=== PATIENT | male | born 1985 | race Caucasian/White ===

== ENCOUNTER 2022-10-28 19:56 | Emergency (ER) | payer OTHER, MEDICAID, SELFPAY ==
[2022-10-28 20:00] VITALS: BP 156/98; PULSE 73; RESP 18; TEMP 36.7; O2SAT 98; BMI 39.5
--- NOTE | 2022-10-28 23:04 | ED_ITS ---
HPI - Recheck/Abnormal Lab/Rx General Chief Complaint: Recheck/Abnormal Lab/Rx Stated Complaint: med refill Time Seen by Provider: 10/28/22 23:04 Source: patient Mode of arrival: Ambulatory History of Present Illness HPI narrative: 37-year-old gentleman with history of opioid use disorder who has been stable on Suboxone for the last 2 years currently seen at [facility] monthly had an appointment today however the prescription did not get filled despite multiple phone calls. He is having significant withdrawal symptoms and is hoping for a single treatment in the emergency department so he is able to get to work and safely work tomorrow. He has been on the same dose for an extended period of time and is wondering if he should begin tapering, he is frustrated with the prescription leg difficulties and does not have any extra doses at home to cover the day or 2 lag time each month. He is complaining of nausea increasing body aches and mild withdrawal symptoms at this time. Related Data Home Medications Medication Instructions Recorded Confirmed buprenorphine 8 mg-naloxone 2 mg 10 mg sublingual BID 10/28/22 10/28/22 sublingual film (Suboxone) Allergies Allergy/AdvReac Type Severity Reaction Status Date / Time No Known Drug Allergies Allergy Verified 10/28/22 20:00 Review of Systems Review of Systems Narrative: Pertinent positive and negative findings as per HPI Patient History Medical History (Updated 10/28/22 @ 23:20 by Alexandra Elizabeth MD) Opioid use disorder in remission Social History Smoking Status: Current every day smoker Smoking Status: Current every day smoker tobacco type: vaping Substance Use Type: does not use Exam Initial Vital Signs Initial Vital Signs: Vital Signs Temperature 98.1 F 10/28/22 20:00 Pulse Rate 73 10/28/22 20:00 Respiratory Rate 18 10/28/22 20:00 Blood Pressure 156/98 H 10/28/22 20:00 Pulse Oximetry 98 10/28/22 20:00 Oxygen Delivery Method Room Air 10/28/22 20:00 General: Alert appropriate in no acute distress Respiratory: Able to speak in full sentences, no obvious respiratory distress Skin: No obvious rashes, warm and dry Neurologic: Grossly intact no obvious asymmetries or abnormalities Psych: appropriate insight and affect, cooperative Course Vital Signs Vital signs: Vital Signs - 8 hr 10/28/22 20:00 Temperature 98.1 F Pulse Rate 73 Respiratory Rate 18 Blood Pressure 156/98 H Pulse Oximetry 98 Oxygen Delivery Method Room Air MDM - Recheck/Abnormal Lab/Rx MDM Narrative Medical decision making narrative: CC: Opioid withdrawal is an acute issue uncertain prognosis Data collected from: patient, Differential considered: Acute opioid withdrawal, Exam documented above, pertinent findings include: Mild diaphoresis and nausea Discussion: 37-year-old gentleman stable with his opioid use treatment with monthly visits at [facility] now will be 48 hours before he is able to get his next dose assuming that the prescription does get filled tomorrow. He is given his usual dose for today in the emergency department and an extra 8 mg strips to have at home. We talked about beginning a very slow taper as he is 2 years into his recovery. Very slow being decreasing his dose by half a strip per week. I also suggested that he talk to his Suboxone provider and ask if they would be willing to give him an additional 2 days given his steady recovery so that he does not have to becomes so anxious and deal with withdrawal symptoms due to lag time in prescription refill difficulties. He is safe for discharge home Discharge Plan Departure Patient Disposition: Home Clinical Impression: Encounter for medication refill Activity Restrictions/Additional Instructions: Thank you for coming in today in for waiting through our long wait times. I have given you 2 strips of Suboxone to take in the emergency department this evening. I have given you an extra want to take home. We briefly talked about the possibility of decreasing your overall weekly dose by half a strip a week. If this feels like it is safe and is something that is reasonable and does not interfere with your long-term recovery, please do consider this. With your next [facility] appointment, please discuss with your prescriber the possibility of making the prescription for 31 days rather than 30 so that you do not have to deal with acute withdrawal symptoms when there are medication refill issues. I wish you the very best in your continued recovery Prescriptions: No Action buprenorphine-naloxone [Suboxone] 8-2 mg film 10 mg sublingual BID Stand Alone Forms: Patient Portal/API
[2022-10-28] MEDS: BUPRENORPHINE/NALOXONE 8MG/2MG 1 TAB 3 TAB SL (23:18)
[2022-10-28 23:19] VITALS: BP 150/93; PULSE 78; RESP 16; O2SAT 97
== END 2022-10-28 23:26 | disposition home or self-care (01) ==
PROVIDERS: Emergency Provider Emergency Medicine
DX: Z76.0 Encounter for issue of repeat prescription (principal); R11.0 Nausea; R52 Pain, unspecified
CPT/HCPCS: 99283

== ENCOUNTER 2022-12-22 14:58 | Emergency (ER) | payer OTHER, MEDICAID, SELFPAY ==
[2022-12-22 15:04] VITALS: BP 180/98; PULSE 100; RESP 16; TEMP 36.6; O2SAT 98; BMI 40.6
--- NOTE | 2022-12-22 16:06 | ED.RECABL ---
HPI - Recheck/Abnormal Lab/Rx <Kory Luna PA-C - Last Filed: 12/22/22 16:12> General Chief Complaint: Recheck/Abnormal Lab/Rx Stated Complaint: Needs emergency med refill Time Seen by Provider: 12/22/22 15:00 History of Present Illness HPI narrative: This is a 37-year-old male presents emergency department for an emergency dosage of his Suboxone. States he is having withdrawal symptoms such as shakiness, nausea, sweating. Denies any hallucinations or seizures. He has a follow up appointment with his [facility] tomorrow. States he accidentally threw his dosing away which is why he is needed to come here. Related Data Home Medications Medication Instructions Recorded Confirmed buprenorphine 8 mg-naloxone 2 mg 10 mg sublingual BID 10/28/22 11/05/22 sublingual film (Suboxone) Allergies Allergy/AdvReac Type Severity Reaction Status Date / Time No Known Drug Allergies Allergy Verified 11/05/22 16:33 Review of Systems <Kory Luna PA-C - Last Filed: 12/22/22 16:12> Review of Systems Narrative: GENERAL: Reports shakiness, diaphoresis Denies chills, fatigue, malaise, fever, . HEENT: Denies sinus pain, ear pain, sore throat, difficulty swallowing, dizziness. RESPIRATORY: Denies dyspnea, cough, wheezing, hemoptysis, sputum. CARDIOVASCULAR: Denies chest pain, palpitations, orthopnea, edema, GASTROINTESTINAL: Reports nausea, denies vomiting, abdominal pain, diarrhea, constipation, melena. : Denies dysuria, frequency, incontinence, hematuria, urinary retention. MUSCULOSKELETAL: denies weakness, joint pain, or bony pain SKIN: Denies rash, skin lesions, or other NEUROLOGIC: Denies weakness, headache, numbness, change in speech, confusion, seizures, incoordination. PSYCHIATRIC: No concerning psychosocial issues. 12 point review of systems is negative except for those stated above Patient History <Kory Luna PA-C - Last Filed: 12/22/22 16:12> Medical History Opioid use disorder in remission Social History Smoking Status: Current every day smoker Smoking Status: Current every day smoker tobacco type: vaping Substance Use Type: does not use Exam <BRIANA Landry Last Filed: 12/22/22 16:12> Narrative Exam Narrative: GENERAL: Well-developed patient, in mild distress. HEAD: Atraumatic. Normocephalic. EYES: Pupils equal round and reactive. Extraocular motions intact. No scleral icterus. No injection or drainage. ENT: Nose without bleeding, purulent drainage. Throat without erythema, tonsillar hypertrophy or exudate. Airway patent. NECK: Trachea midline. Non tender CARDIOVASCULAR: Regular rate and rhythm without murmurs, gallops, or rubs. RESPIRATORY: Clear to auscultation. Breath sounds equal bilaterally. No wheezes, rales, or rhonchi. GASTROINTESTINAL: Abdomen soft, non-tender, nondistended. EXTREMITIES: No edema or joint tenderness. BACK: Nontender without deformity or crepitance. No flank tenderness. NEURO: AOx3. SKIN: No rash or erythema of visible areas Initial Vital Signs Initial Vital Signs: Vital Signs Temperature 97.8 F 12/22/22 15:04 Pulse Rate 100 H 12/22/22 15:04 Respiratory Rate 16 12/22/22 15:04 Blood Pressure 180/98 H 12/22/22 15:04 Pulse Oximetry 98 12/22/22 15:04 Oxygen Delivery Method Room Air 12/22/22 15:04 <Fabi Celaya DO - Last Filed: 12/26/22 09:01> Initial Vital Signs Initial Vital Signs: Vital Signs Temperature 97.8 F 12/22/22 15:04 Pulse Rate 100 H 12/22/22 15:04 Respiratory Rate 16 12/22/22 15:04 Blood Pressure 180/98 H 12/22/22 15:04 Pulse Oximetry 98 12/22/22 15:04 Oxygen Delivery Method Room Air 12/22/22 15:04 Course <Kory Luna PA-C - Last Filed: 12/22/22 16:12> Orders Ordered: Discontinued Medications Buprenorphine/Naloxone (Buprenorphine/Naloxone 8mg/2mg 1 Tab) 1 tab SL DAILY [place] Buprenorphine/Naloxone (Buprenorphine/Naloxone 8mg/2mg 1 Tab) 2 tab SL DAILY [place] Buprenorphine/Naloxone (Buprenorphine/Naloxone 8mg/2mg 1 Tab) 2 tab SL NOW ONE Stop: 12/22/22 16:18 Last Admin: 12/22/22 16:21 Dose: 2 tab Documented By: RLS Vital Signs Vital signs: Vital Signs - 8 hr 12/22/22 15:04 Temperature 97.8 F Pulse Rate 100 H Respiratory Rate 16 Blood Pressure 180/98 H Pulse Oximetry 98 Oxygen Delivery Method Room Air <Fabi Celaya DO - Last Filed: 12/26/22 09:01> Orders Ordered: Discontinued Medications Buprenorphine/Naloxone (Buprenorphine/Naloxone 8mg/2mg 1 Tab) 1 tab SL DAILY [place] Buprenorphine/Naloxone (Buprenorphine/Naloxone 8mg/2mg 1 Tab) 2 tab SL DAILY [place] Buprenorphine/Naloxone (Buprenorphine/Naloxone 8mg/2mg 1 Tab) 2 tab SL NOW ONE Stop: 12/22/22 16:18 Last Admin: 12/22/22 16:21 Dose: 2 tab Documented By: RLS Vital Signs Vital signs: Vital Signs - 8 hr 12/22/22 15:04 Temperature 97.8 F Pulse Rate 100 H Respiratory Rate 16 Blood Pressure 180/98 H Pulse Oximetry 98 Oxygen Delivery Method Room Air MDM - Recheck/Abnormal Lab/Rx <Kory Luna PA-C - Last Filed: 12/22/22 16:12> MDM Narrative Medical decision making narrative: MDM * differential diagnosis includes but not limited to medication refill, withdrawals * Prior records reviewed: Patient was seen here 2 months ago for Suboxone refill. History of opiate use disorder. Currently seen at [facility] monthly. * My lab interpretation: None obtained * My imgaing interpretation: None obtained * Clinical Decision Rules/Scores evaluated: None * Independent discussions with: None ED Course: This is a 37-year-old male presents to the emergency department due to an emergency Suboxone administration. States he is accidentally threw a Suboxone. He states he takes 16/for Suboxone nightly. This was given to him here in the emergency department. He has not established follow up appointment with his [facility] provider tomorrow. No significant withdrawal symptoms such as seizures, hallucinations. Shared Decision Making: Discussed plan with patient who is comfortable with the plan. Social Considerations: None Disposition: Discharged to home. Discharge Plan Departure Patient Disposition: Home Clinical Impression: Encounter for medication refill Activity Restrictions/Additional Instructions: Thank you for coming to the [facility] Emergency Department today. Please follow up with the [facility] tomorrow for refills. Please do best to not need to return to the emergency department for refills in to ensure that you have proper follow up with the [facility]. I hope you feel better soon. Please follow up with your primary care provider within a week if your symptoms continue. If you do not have a primary care provider please contact the [facility] Resource line at [phone]. They will ask some questions about your medical history and help you get set up with a provider in the community. Prescriptions: No Action buprenorphine-naloxone [Suboxone] 8-2 mg film 10 mg sublingual BID Referrals: Miscellaneous,Doctor, [Primary Care Provider] - Stand Alone Forms: Patient Portal/API ED Sign-out <Fabi Celaya DO - Last Filed: 12/26/22 09:01> Cosign ED Attending Clifford Attestation: I was immediately available in the department for consultation. Documentation has been reviewed.
[2022-12-22] MEDS: BUPRENORPHINE/NALOXONE 8MG/2MG 1 TAB 2 TAB SL (16:21)
== END 2022-12-22 16:24 | disposition home or self-care (01) ==
PROVIDERS: Emergency Provider Physician Assistant Medical
DX: Z76.0 Encounter for issue of repeat prescription (principal)
CPT/HCPCS: 99282; 99283

== ENCOUNTER 2023-04-13 13:01 | Emergency (ER) | payer OTHER, SELFPAY ==
[2023-04-13 13:04] VITALS: BP 154/96; PULSE 90; RESP 18; TEMP 36.6; O2SAT 99; BMI 46.1
--- NOTE | 2023-04-13 13:31 | ED_ITS ---
HPI - Recheck/Abnormal Lab/Rx <Kory Luna PA-C - Last Filed: 04/13/23 13:44> General Chief Complaint: Recheck/Abnormal Lab/Rx Stated Complaint: needs mdication refill drs closed Time Seen by Provider: 04/13/23 13:17 Source: patient Mode of arrival: Ambulatory History of Present Illness HPI narrative: This is a 37-year-old male presents emergency department due to running out of his Suboxone. He is seen at [facility] and has an appointment tomorrow. States he was not taking his Suboxone for 2 days. Takes he takes 16/4 mg daily of Suboxone. Reports some mild nausea. No other symptoms. Related Data Home Medications Medication Instructions Recorded Confirmed buprenorphine 8 mg-naloxone 2 mg 10 mg sublingual BID 10/28/22 11/05/22 sublingual film (Suboxone) Allergies Allergy/AdvReac Type Severity Reaction Status Date / Time No Known Drug Allergies Allergy Verified 04/13/23 13:04 Review of Systems <Kory Luna PA-C - Last Filed: 04/13/23 13:44> Review of Systems Narrative: GENERAL: Denies chills, fatigue, malaise, fever, sweats. HEENT: Denies sinus pain, ear pain, sore throat, difficulty swallowing, dizziness. RESPIRATORY: Denies dyspnea, cough, wheezing, hemoptysis, sputum. CARDIOVASCULAR: Denies chest pain, palpitations, orthopnea, edema, GASTROINTESTINAL: Reports nausea, denies vomiting, abdominal pain, diarrhea, constipation, melena. : Denies dysuria, frequency, incontinence, hematuria, urinary retention. MUSCULOSKELETAL: denies weakness, joint pain, or bony pain SKIN: Denies rash, skin lesions, or other NEUROLOGIC: Denies weakness, headache, numbness, change in speech, confusion, seizures, incoordination. PSYCHIATRIC: No concerning psychosocial issues. 12 point review of systems is negative except for those stated above Patient History <Kory Luna PA-C - Last Filed: 04/13/23 13:44> Medical History Opioid use disorder in remission Social History Smoking Status: Current every day smoker Smoking Status: Current every day smoker tobacco type: vaping Substance Use Type: does not use and former substance user Exam <Kory Luna PA-C - Last Filed: 04/13/23 13:44> Narrative Exam Narrative: GENERAL: Well-developed patient, in mild distress. HEAD: Atraumatic. Normocephalic. EYES: Pupils equal round and reactive. Extraocular motions intact. No scleral icterus. No injection or drainage. ENT: Nose without bleeding, purulent drainage. Throat without erythema, tonsillar hypertrophy or exudate. Airway patent. NECK: Trachea midline. Non tender EXTREMITIES: No edema or joint tenderness. NEURO: AOx3. SKIN: No rash or erythema of visible areas Initial Vital Signs Initial Vital Signs: Vital Signs Temperature 97.8 F 04/13/23 13:04 Pulse Rate 90 04/13/23 13:04 Respiratory Rate 18 04/13/23 13:04 Blood Pressure 154/96 H 04/13/23 13:04 Pulse Oximetry 99 04/13/23 13:04 Oxygen Delivery Method Room Air 04/13/23 13:04 <Haley Rain DO - Last Filed: 04/14/23 07:32> Initial Vital Signs Initial Vital Signs: Vital Signs Temperature 97.8 F 04/13/23 13:04 Pulse Rate 90 04/13/23 13:04 Respiratory Rate 18 04/13/23 13:04 Blood Pressure 154/96 H 04/13/23 13:04 Pulse Oximetry 99 04/13/23 13:04 Oxygen Delivery Method Room Air 04/13/23 13:04 Course <Kory Luna PA-C - Last Filed: 04/13/23 13:44> Orders Ordered: Discontinued Medications Buprenorphine/Naloxone (Buprenorphine/Naloxone 8mg/2mg 1 Tab) 2 tab SL NOW ONE Stop: 04/13/23 13:41 Last Admin: 04/13/23 13:50 Dose: 2 tab Documented By: RLS Vital Signs Vital signs: Vital Signs - 8 hr 04/13/23 13:04 Temperature 97.8 F Pulse Rate 90 Respiratory Rate 18 Blood Pressure 154/96 H Pulse Oximetry 99 Oxygen Delivery Method Room Air <Haley Rain DO - Last Filed: 04/14/23 07:32> Orders Ordered: Discontinued Medications Buprenorphine/Naloxone (Buprenorphine/Naloxone 8mg/2mg 1 Tab) 2 tab SL NOW ONE Stop: 04/13/23 13:41 Last Admin: 04/13/23 13:50 Dose: 2 tab Documented By: RLS Vital Signs Vital signs: Vital Signs - 8 hr 04/13/23 13:04 Temperature 97.8 F Pulse Rate 90 Respiratory Rate 18 Blood Pressure 154/96 H Pulse Oximetry 99 Oxygen Delivery Method Room Air MDM - Recheck/Abnormal Lab/Rx <Kory Luna PA-C - Last Filed: 04/13/23 13:44> [facility] Narrative Medical decision making narrative: ED course: This is a 37-year-old male presents to the emergency department due to running out of his Suboxone. States that he takes 16/4 mg of Suboxone daily which appears to be correct based on his medical record. He has not an appointment with [facility] tomorrow. Has mild nausea but no other symptoms. We will be given a 1 time dose here in the emergency department and recommended follow up with the [facility] department. CC: Medication refill Complicating co-morbidities: Opiate use disorder Data collected from: Previous notes Medical records reviewed: Patient was seen here 4 months ago for a medication refill of his Suboxone. Is seen at [facility]. Patient was given 16/4 of Suboxone 1 time in the emergency department Differential considered, but not limited to: Opiate withdrawal Exam documented above, pertinent findings include: No significant abnormalities Lab Test results independently reviewed as above. Pertinent findings: None obtained Imaging studies independently reviewed: None obtained Scores Used: None MIPS Elements: None Consultations: None Treatments: Suboxone here in the emergency department Re-evaluations: None Discussion: Discussed plan with the patient was comfortable with the plan Diagnosis: Medication refill Disposition: see below, along with detailed discharge instructions that have been reviewed with patient as well as indications for ED re-evaluation and additional outpatient follow up Discharge Plan Departure Patient Disposition: Home Clinical Impression: Encounter for medication refill Activity Restrictions/Additional Instructions: Thank you for coming to the [facility] Emergency Department today. We are able to give you a 1 time dose here in the emergency department. Please do your best to refrain from using the emergency department for routine refills. Please do your best to work with the [facility] for the appropriate dosing see you not run out of medication. Please return to the emergency department if you develop any chest pain, shortness breath, or any other concerning signs or symptoms. I hope you feel better soon. Please follow up with your primary care provider within a week if your symptoms continue. If you do not have a primary care provider please contact the [facility] Resource line at [phone]. They will ask some questions about your medical history and help you get set up with a provider in the community. Prescriptions: No Action buprenorphine-naloxone [Suboxone] 8-2 mg film 10 mg sublingual BID Referrals: Miscellaneous,Doctor, [Primary Care Provider] - Stand Alone Forms: Patient Portal/API ED Sign-out <Haley Rain DO - Last Filed: 04/14/23 07:32> Cosign ED Attending Clifford Attestation: I was immediately available in the department for consultation.
[2023-04-13] MEDS: BUPRENORPHINE/NALOXONE 8MG/2MG 1 TAB 2 TAB SL (13:50)
== END 2023-04-13 13:59 | disposition home or self-care (01) ==
PROVIDERS: Emergency Provider Physician Assistant Medical
DX: Z76.0 Encounter for issue of repeat prescription (principal)
CPT/HCPCS: 99283

== ENCOUNTER 2023-06-22 10:28 | Emergency (ER) | payer SELFPAY ==
[2023-06-22 10:42] VITALS: BP 143/91; PULSE 94; RESP 18; TEMP 36.6; O2SAT 99; BMI 42.8
--- NOTE | 2023-06-22 11:05 | ED_ITS ---
HPI - Recheck/Abnormal Lab/Rx <Maira Alvarez PA-C - Last Filed: 06/22/23 11:51> General Chief Complaint: Recheck/Abnormal Lab/Rx Stated Complaint: medication refill Time Seen by Provider: 06/22/23 10:51 Source: patient Mode of arrival: Family Vehicle History of Present Illness HPI narrative: 37-year-old male requesting refill on his Suboxone, he takes 16-4 mg daily for opioid and alcohol dependence. He has been sober for 2.5 years previous history of EtOH, crack cocaine, heroin and methamphetamine. He has been out since Friday and he is just feeling a little unwell stating he tried to make it through the weekend. He has an appointment tomorrow at 2:30 p.m. at [facility] in [place]. He has no acute complaint. All other systems are reviewed and are negative. Related Data Home Medications Medication Instructions Recorded Confirmed buprenorphine 8 mg-naloxone 2 mg 10 mg sublingual BID 10/28/22 11/05/22 sublingual film (Suboxone) Allergies Allergy/AdvReac Type Severity Reaction Status Date / Time No Known Drug Allergies Allergy Verified 06/22/23 10:47 Review of Systems <Maira Alvarez PA-C - Last Filed: 06/22/23 11:51> Review of Systems Narrative: SEE HPI Patient History <Maira Alvarez PA-C - Last Filed: 06/22/23 11:51> Medical History (Updated 06/22/23 @ 11:31 by Maira Alvarez PA-C) Opioid use disorder in remission Social History Smoking Status: Current every day smoker Smoking Status: Current every day smoker tobacco type: vaping alcohol intake frequency: 0-2 drinks per day Substance Use Type: does not use, former substance user, crack/cocaine, heroin and methamphetamine Exam <Maira Alvarez PA-C - Last Filed: 06/22/23 11:51> Initial Vital Signs Initial Vital Signs: Vital Signs Temperature 97.8 F 06/22/23 10:42 Pulse Rate 94 H 06/22/23 10:42 Respiratory Rate 18 06/22/23 10:42 Blood Pressure 143/91 H 06/22/23 10:42 Pulse Oximetry 99 06/22/23 10:42 Oxygen Delivery Method Room Air 06/22/23 10:42 Vital signs reviewed and are normal except for elevated blood pressure reading today. Const Other: Pleasantly conversing, smiling, no distress. Eyes Conjunctivae: conjunctivae normal Pupils: PERRL Neck Lymphatic: No lymphadenopathy Resp Other: Clear to auscultation throughout all mock. Equal expansion. Cardio Other: Regular rate and rhythm, no tachycardia. Skin Other: Normal color, turgor, temperature no lesions. Psych Other: Pleasant affect. Good eye contact. Answers all questions without hesitation. <Patrick Woodard MD - Last Filed: 06/22/23 16:29> Initial Vital Signs Initial Vital Signs: Vital Signs Temperature 97.8 F 06/22/23 10:42 Pulse Rate 94 H 06/22/23 10:42 Respiratory Rate 18 06/22/23 10:42 Blood Pressure 143/91 H 06/22/23 10:42 Pulse Oximetry 99 06/22/23 10:42 Oxygen Delivery Method Room Air 06/22/23 10:42 Course <Maira Alvarez PA-C - Last Filed: 06/22/23 11:51> Orders Ordered: Discontinued Medications Buprenorphine/Naloxone (Buprenorphine/Naloxone 8mg/2mg 1 Tab) 2 tab SL DAILY [facility] Last Admin: 06/22/23 11:38 Dose: 2 tab Documented By: NL Vital Signs Vital signs: Vital Signs - 8 hr 06/22/23 10:42 Temperature 97.8 F Pulse Rate 94 H Respiratory Rate 18 Blood Pressure 143/91 H Pulse Oximetry 99 Oxygen Delivery Method Room Air <Patrick Woodard MD - Last Filed: 06/22/23 16:29> Orders Ordered: Discontinued Medications Buprenorphine/Naloxone (Buprenorphine/Naloxone 8mg/2mg 1 Tab) 2 tab SL DAILY [facility] Last Admin: 06/22/23 11:38 Dose: 2 tab Documented By: NL Vital Signs Vital signs: Vital Signs - 8 hr 06/22/23 10:42 Temperature 97.8 F Pulse Rate 94 H Respiratory Rate 18 Blood Pressure 143/91 H Pulse Oximetry 99 Oxygen Delivery Method Room Air MDM - Recheck/Abnormal Lab/Rx <Maira Alvarez PA-C - Last Filed: 06/22/23 11:51> Medical Records Medical records narrative: Reviewed previous notes most recent dated April 13, 2023 emergency room visit for medication refill. Lab Data Lab results narrative: No recent lab work noted. MDM Narrative Medical decision making narrative: Sober for 2.5 years for opioid dependence and alcohol and has an appointment tomorrow at [facility], [facility] where he is followed long-term and has prescriptions are generated there. He is administered his dose of Suboxone / #2 SL, here in the ED, he will obtain his prescription tomorrow during his follow-up. His clinical opioid withdrawal scale (COWS) score is 6/11 which demonstrates mild withdrawal symptoms. He is commended on his sobriety. Red flag warning signs reviewed in detail please return to the emergency department if you develop any worsening symptoms. Red flag warning signs reviewed in detail. Discharge Plan Departure Patient Disposition: Home Clinical Impression: Encounter for medication refill, Opioid use disorder in remission Instructions: DI for Drug or Alcohol Withdrawal Activity Restrictions/Additional Instructions: You have been administered your dose today here in the emergency department. Please keep your appointment tomorrow at [facility] in [place]. Please return to the emergency department if you have any recurrent or new symptoms. You are commended on your sobriety keep up the good work. I wish you the best of luck on this difficult journey. Prescriptions: No Action buprenorphine-naloxone [Suboxone] 8-2 mg film 10 mg sublingual BID Referrals: Miscellaneous,DoctorMD [Primary Care Provider] - Stand Alone Forms: Patient Portal/API ED Sign-out <Patrick Woodard MD - Last Filed: 06/22/23 16:29> Cosign ED Attending [facility] Attestation: I was immediately available in the department for consultation. ?This documentation has been reviewed and I agree with assessment and plan. Supervised by Patrick Woodard MD
[2023-06-22] MEDS: BUPRENORPHINE/NALOXONE 8MG/2MG 1 TAB 2 TAB SL (11:38)
== END 2023-06-22 11:40 | disposition home or self-care (01) ==
PROVIDERS: Emergency Provider Physician Assistant Medical
DX: Z76.0 Encounter for issue of repeat prescription (principal); F11.91 Opioid use, unspecified, in remission
CPT/HCPCS: 99282; 99283

== ENCOUNTER 2023-10-05 13:03 | Emergency (ER) | payer MEDICAID, OTHER, SELFPAY ==
[2023-10-05 13:08] VITALS: BP 134/87; PULSE 75; RESP 18; TEMP 36.4; O2SAT 98; BMI 40.2
--- NOTE | 2023-10-05 13:38 | ED.RECABL ---
HPI - Recheck/Abnormal Lab/Rx General Chief Complaint: Recheck/Abnormal Lab/Rx Stated Complaint: Med check Time Seen by Provider: 10/05/23 13:16 History of Present Illness HPI narrative: Patient is a 38-year-old male chronically on Suboxone for the last 3 years. Prior history of heroin and fentanyl abuse along with alcohol. He has been clean. Reports that he has not gotten his medication he was out of town for the last 3 days. He has an appointment tomorrow but feels like he is going through withdrawal now. He feels like he is crawling out of the skin has some mild diarrhea and generalized anxiety. He has gone through withdrawal before this feels similar. Related Data Home Medications Medication Instructions Recorded Confirmed buprenorphine 8 mg-naloxone 2 mg 10 mg sublingual BID 10/28/22 11/05/22 sublingual film (Suboxone) Allergies Allergy/AdvReac Type Severity Reaction Status Date / Time No Known Drug Allergies Allergy Verified 06/22/23 10:47 Patient History Medical History Opioid use disorder in remission Social History Smoking Status: Current every day smoker Smoking Status: Current every day smoker tobacco type: vaping alcohol intake frequency: 0-2 drinks per day Substance Use Type: does not use and former substance user Exam Initial Vital Signs Initial Vital Signs: Vital Signs Temperature 97.5 F L 10/05/23 13:08 Pulse Rate 75 10/05/23 13:08 Respiratory Rate 18 10/05/23 13:08 Blood Pressure 134/87 10/05/23 13:08 Pulse Oximetry 98 10/05/23 13:08 Oxygen Delivery Method Room Air 10/05/23 13:08 GENERAL: Alert well-appearing and in no acute distress. HEENT: Head atraumatic,EOMI, pupils reactive, face symmetric, moist mucous membranes CARDIOVASCULAR: Regular rate and rhythm without murmurs, rubs or gallops. RESPIRATORY: Breath sounds equal bilaterally, no wheezes rales or rhonchi. ABDOMEN: Soft, nontender. Normoactive bowel sounds all 4 quadrants. No guarding or rebound. EXTREMITIES: Normal range of motion, no clubbing or edema. Neurovascularly intact NEUROLOGICAL: Alert and oriented x4.Normal gait and speech. Cranial nerves II through XII grossly intact. SKIN: Warm, dry, no laceration, no petechiae, no rashes or lesions. Course Orders Ordered: Discontinued Medications Buprenorphine/Naloxone (Buprenorphine/Naloxone 8mg/2mg 1 Tab) 2 tab SL DAILY [facility] Last Admin: 10/05/23 14:05 Dose: 2 tab Documented By: ALBINA Vital Signs Vital signs: Vital Signs - 8 hr 10/05/23 13:08 10/05/23 14:10 Temperature 97.5 F L Pulse Rate 75 70 Respiratory Rate 18 22 Blood Pressure 134/87 144/83 H Pulse Oximetry 98 96 Oxygen Delivery Method Room Air Room Air MDM - Recheck/Abnormal Lab/Rx MDM Narrative Medical decision making narrative: Patient 38-year-old male history of chronic opiate abuse has been on Suboxone for at least 3 years missed the last 3 days presenting today with withdrawal like symptoms has an appointment tomorrow. Vitals are stable he overall appears well non diaphoretic. He is given his dose of 16 mg here in the ED Discharge Plan Departure Patient Disposition: Home Clinical Impression: Opioid use disorder in remission Activity Restrictions/Additional Instructions: *You have been diagnosed with opiate use disorder *What to do: Please follow-up tomorrow for your scheduled dose *Continue to take medications as directed *Follow up with your primary care provider in 2-3 days or call [phone] *Return to ER if you should have persistent diarrhea anxiety feelings of withdrawal or any new, worsening or concerning symptoms Prescriptions: No Action buprenorphine-naloxone [Suboxone] 8-2 mg film 10 mg sublingual BID Referrals: Miscellaneous,DoctorMD [Primary Care Provider] - Stand Alone Forms: Patient Portal/API
[2023-10-05] MEDS: BUPRENORPHINE/NALOXONE 8MG/2MG 1 TAB 2 TAB SL (14:05)
[2023-10-05 14:10] VITALS: BP 144/83; PULSE 70; RESP 22; O2SAT 96
== END 2023-10-05 14:18 | disposition home or self-care (01) ==
PROVIDERS: Emergency Provider Emergency Medicine
DX: F11.91 Opioid use, unspecified, in remission (principal)
CPT/HCPCS: 99283

== ENCOUNTER 2023-10-26 10:33 | Emergency (ER) | payer SELFPAY ==
[2023-10-26 10:52] VITALS: BP 151/104; PULSE 68; RESP 16; TEMP 36.6; O2SAT 96; BMI 42.2
--- NOTE | 2023-10-26 11:37 | ED_ITS ---
HPI - Recheck/Abnormal Lab/Rx <Kory Luna PA-C - Last Filed: 10/26/23 11:46> General Chief Complaint: Recheck/Abnormal Lab/Rx Stated Complaint: feeling sick, needs med refill Time Seen by Provider: 10/26/23 11:36 History of Present Illness HPI narrative: This is a 38-year-old male presents emergency department due to running out of his outpatient Suboxone medication. He states that he was only given a tablets to fill him until (3 days ago) and was supposed to have an appointment with [facility] on Friday although he said he went to the appointment and they were closed. He states that he was an appointment tomorrow where he will follow up as planned for his routine Suboxone but needs a dose today as he was going through mild withdrawal symptoms including diarrhea and ?feeling tingly all over?. Denies any chest pain, shortness of breath, or any other concerning signs or symptoms. Related Data Home Medications Medication Instructions Recorded Confirmed buprenorphine 8 mg-naloxone 2 mg 10 mg sublingual BID 10/28/22 11/05/22 sublingual film (Suboxone) Allergies Allergy/AdvReac Type Severity Reaction Status Date / Time No Known Drug Allergies Allergy Verified 06/22/23 10:47 Review of Systems <BRIANA Landry Last Filed: 10/26/23 11:46> Review of Systems Narrative: GENERAL: Denies chills, fatigue, malaise, fever, sweats. HEENT: Denies sinus pain, ear pain, sore throat, difficulty swallowing, dizziness. RESPIRATORY: Denies dyspnea, cough, wheezing, hemoptysis, sputum. CARDIOVASCULAR: Denies chest pain, palpitations, orthopnea, edema, GASTROINTESTINAL: Reports diarrhea Denies nausea, vomiting, abdominal pain, , constipation, melena. : Denies dysuria, frequency, incontinence, hematuria, urinary retention. MUSCULOSKELETAL: denies weakness, joint pain, or bony pain SKIN: Denies rash, skin lesions, or other NEUROLOGIC: Reports paresthesias, Denies weakness, headache, numbness, change in speech, confusion, seizures, incoordination. PSYCHIATRIC: No concerning psychosocial issues. 12 point review of systems is negative except for those stated above Patient History <Kory Luna PA-C - Last Filed: 10/26/23 11:46> Medical History Opioid use disorder in remission Social History Smoking Status: Current every day smoker Smoking Status: Current every day smoker tobacco type: vaping alcohol intake frequency: 0-2 drinks per day Substance Use Type: does not use and former substance user Exam <Kory Luna PA-C - Last Filed: 10/26/23 11:46> Narrative Exam Narrative: GENERAL: Well-developed patient, in mild distress. HEAD: Atraumatic. Normocephalic. EYES: Pupils equal round and reactive. Extraocular motions intact. No scleral icterus. No injection or drainage. ENT: Nose without bleeding, purulent drainage. Throat without erythema, tonsillar hypertrophy or exudate. Airway patent. NECK: Trachea midline. Non tender EXTREMITIES: No edema or joint tenderness. NEURO: AOx3. SKIN: No rash or erythema of visible areas Initial Vital Signs Initial Vital Signs: Vital Signs Temperature 97.8 F 10/26/23 10:52 Pulse Rate 68 10/26/23 10:52 Respiratory Rate 16 10/26/23 10:52 Blood Pressure 151/104 H 10/26/23 10:52 Pulse Oximetry 96 10/26/23 10:52 Oxygen Delivery Method Room Air 10/26/23 10:52 <Alexandra Elizabeth MD - Last Filed: 10/26/23 18:34> Initial Vital Signs Initial Vital Signs: Vital Signs Temperature 97.8 F 10/26/23 10:52 Pulse Rate 68 10/26/23 10:52 Respiratory Rate 16 10/26/23 10:52 Blood Pressure 151/104 H 10/26/23 10:52 Pulse Oximetry 96 10/26/23 10:52 Oxygen Delivery Method Room Air 10/26/23 10:52 Course <Kory Luna PA-C - Last Filed: 10/26/23 11:46> Orders Ordered: Discontinued Medications Buprenorphine/Naloxone (Buprenorphine/Naloxone 8mg/2mg 1 Tab) 2 tab SL NOW ONE Stop: 10/26/23 11:42 Last Admin: 10/26/23 11:57 Dose: 2 tab Documented By: Vital Signs Vital signs: Vital Signs - 8 hr 10/26/23 10:52 10/26/23 11:59 Temperature 97.8 F Pulse Rate 68 77 Respiratory Rate 16 16 Blood Pressure 151/104 H 140/88 Pulse Oximetry 96 96 Oxygen Delivery Method Room Air Room Air <Alexandra Elizabeth MD - Last Filed: 10/26/23 18:34> Orders Ordered: Discontinued Medications Buprenorphine/Naloxone (Buprenorphine/Naloxone 8mg/2mg 1 Tab) 2 tab SL NOW ONE Stop: 10/26/23 11:42 Last Admin: 10/26/23 11:57 Dose: 2 tab Documented By: Vital Signs Vital signs: Vital Signs - 8 hr 10/26/23 10:52 10/26/23 11:59 Temperature 97.8 F Pulse Rate 68 77 Respiratory Rate 16 16 Blood Pressure 151/104 H 140/88 Pulse Oximetry 96 96 Oxygen Delivery Method Room Air Room Air MDM - Recheck/Abnormal Lab/Rx <Kory uLna PA-C - Last Filed: 10/26/23 11:46> MDM Narrative Medical decision making narrative: ED course: This is a 38-year-old male presenting to the emergency department due to needing a dose of Suboxone until he was able to see his [facility] tomorrow. This was given to him here in the emergency department. He was no concerning life-threatening symptoms although his experiencing some mild withdrawal symptoms that he was states happens to him routinely when he goes through withdrawals. Patient has been chronically on Suboxone for the last 3 years which has been working well for him. We will give ago dose here in the emergency department and he will follow up with the [facility] tomorrow. CC: Withdrawal symptoms Complicating co-morbidities: History of opiate use disorder on Suboxone Data collected from: Previous notes Medical records reviewed: Patient was last seen 3 weeks ago due to opiate use disorder. Chronically on Suboxone for the last 3 years. Prior history of heroin and fentanyl abuse along with alcohol. Patient came into the emergency department because he felt like he was going through withdrawals. Patient was given 2 tablets of Suboxone, 8 mg/2 mg here in the emergency department. He was also prescribed Suboxone 8-2 mg films. Patient was has been seen here in the emergency department 5 times in the last year for similar complaints. Differential considered, but not limited to: Acute withdrawals, alcohol use, drug use Exam documented above, pertinent findings include: No concerning findings Lab Test results independently reviewed as above. Pertinent findings: None obtained Imaging studies independently reviewed: None obtained Scores Used: None MIPS Elements: None Consultations: None Treatments: 16 mg Suboxone Re-evaluations: None Discussion: Discussed plan with the patient was comfortable with the plan Diagnosis: Withdrawal symptoms Disposition: see below, along with detailed discharge instructions that have been reviewed with patient as well as indications for ED re-evaluation and additional outpatient follow up Discharge Plan Departure Patient Disposition: Home Clinical Impression: Symptom of drug withdrawal Activity Restrictions/Additional Instructions: Thank you for coming to the [facility] Emergency Department today. We are able to give you your dosing of Suboxone here in the emergency department today. Please do your best to maintain regular appointments with the [facility] provider outpatient to avoid future visits like this to the emergency department. Please follow up with them tomorrow as you plan. Please return to the emergency department if you develop any chest pain, shortness of breath, or any other concerning signs or symptoms. I hope you feel better soon. Please follow up with your primary care provider within a week if your symptoms continue. If you do not have a primary care provider please contact the [facility] Resource line at [phone]. They will ask some questions about your medical history and help you get set up with a provider in the community. Prescriptions: No Action buprenorphine-naloxone [Suboxone] 8-2 mg film 10 mg sublingual BID Referrals: Radha,DoctorMD [Primary Care Provider] - Stand Alone Forms: Patient Portal/API ED Sign-out <Alexandra Elizabeth MD - Last Filed: 10/26/23 18:34> Cosign ED Attending [facility] Attestation: I was immediately available in the department for consultation throughout this patient's visit. Alexandra Elizabeth MD
[2023-10-26] MEDS: BUPRENORPHINE/NALOXONE 8MG/2MG 1 TAB 2 TAB SL (11:57)
[2023-10-26 11:59] VITALS: BP 140/88; PULSE 77; RESP 16; O2SAT 96
== END 2023-10-26 12:01 | disposition home or self-care (01) ==
PROVIDERS: Emergency Provider Physician Assistant Medical
DX: Z76.0 Encounter for issue of repeat prescription (principal); F19.239 Other psychoactive substance dependence with withdrawal, unspecified
CPT/HCPCS: 99283

== ENCOUNTER 2023-11-21 18:53 | Emergency (ER) | payer SELFPAY ==
[2023-11-21 19:06] VITALS: BP 144/93; PULSE 77; RESP 18; TEMP 36.6; O2SAT 99; BMI 39.3
[2023-11-21 19:59] LABS: COVID-19 CEPHEID 4-PLEX PCR Negative (Negative); Influenza A - CEPHEID Flu A NEGATIVE (NEGATIVE); Influenza B - CEPHEID Flu B NEGATIVE (NEGATIVE); Respiratory Syncytial Virus Negative (Negative)
[2023-11-21 20:30] VITALS: BP 135/84; PULSE 91; RESP 16; TEMP 36.8; O2SAT 98
--- NOTE | 2023-11-21 21:03 | ED.URI ---
HPI - URI/Sore Throat General Chief Complaint: Upper Respiratory Symptoms Stated Complaint: vomiting, fever, headache, diarrhea Time Seen by Provider: 11/21/23 21:03 Source: patient Mode of arrival: Ambulatory History of Present Illness HPI Narrative: 38-year-old male without history of chronic heart or lung problems, now with couple of days duration of cough and abdominal cramping and nausea with nonbloody emesis, muscle aches. He denies shortness of breath or chest discomfort. No recent exposure to antibiotics. No recent exposure to persons known to have COVID or influenza, nor with any persons with similar symptoms. Related Data Home Medications Medication Instructions Recorded Confirmed buprenorphine 8 mg-naloxone 2 mg 10 mg sublingual BID 10/28/22 11/05/22 sublingual film (Suboxone) Allergies Allergy/AdvReac Type Severity Reaction Status Date / Time No Known Drug Allergies Allergy Verified 11/21/23 19:10 Review of Systems Review of Systems Narrative: see HPI Patient History Medical History Opioid use disorder in remission Social History Smoking Status: Current every day smoker Smoking Status: Current every day smoker tobacco type: vaping alcohol intake frequency: 0-2 drinks per day Substance Use Type: does not use and former substance user Exam Narrative Exam Narrative: GENERAL: Well-developed patient, in mild distress. HEAD: Atraumatic. Normocephalic. EYES: Pupils equal round and reactive. Extraocular motions intact. No scleral icterus. No injection or drainage. ENT: Nose without bleeding, purulent drainage. Throat without erythema, tonsillar hypertrophy or exudate. Airway patent. NECK: Trachea midline. Non tender CARDIOVASCULAR: Regular rate and rhythm without murmurs, gallops, or rubs. RESPIRATORY: Clear to auscultation. Breath sounds equal bilaterally. No wheezes, rales, or rhonchi. GASTROINTESTINAL: Abdomen soft, non-tender, nondistended. EXTREMITIES: No edema or joint tenderness. BACK: Nontender without deformity or crepitance. No flank tenderness. NEURO: AOx3. Motor functions grossly nonfocal SKIN: No rash or erythema of visible areas Initial Vital Signs Initial Vital Signs: Vital Signs Temperature 97.9 F 11/21/23 19:06 Pulse Rate 77 11/21/23 19:06 Respiratory Rate 18 11/21/23 19:06 Blood Pressure 144/93 H 11/21/23 19:06 Pulse Oximetry 99 11/21/23 19:06 Oxygen Delivery Method Room Air 11/21/23 19:06 Course Orders Ordered: ED Orders 11/21/23 19:10 Covid-19 + FLU A/B + RSV - PCR Stat Discontinued Medications Ondansetron HCl (Ondansetron 4 Mg Odt Prepack) 1 bottle MISC DIRECTED ONE Stop: 11/21/23 21:19 Last Admin: 11/21/23 21:28 Dose: 1 bottle Documented By: STAN Vital Signs Vital signs: Vital Signs - 8 hr 11/21/23 19:06 11/21/23 20:30 Temperature 97.9 F 98.2 F Pulse Rate 77 91 H Respiratory Rate 18 16 Blood Pressure 144/93 H 135/84 Pulse Oximetry 99 98 Oxygen Delivery Method Room Air Room Air MDM - URI/Sore Throat Lab Data Attestation: I reviewed the patient's lab results. Labs: Lab Results 11/21/23 Range/Units 19:10 SARS-CoV-2 (PCR) Negative (Negative) Influenza A (RT-PCR) Flu a negative (NEGATIVE) Influenza B (RT-PCR) Flu b negative (NEGATIVE) RSV (PCR) Negative (Negative) MDM Narrative Medical decision making narrative: 38-year-old male with nausea vomiting diarrhea as well as recent cough, denies shortness of breath, afebrile, sirs screen negative. Swab sent for COVID influenza RSV from triage, results were negative. Traumatic treatment discussed. Tylenol as needed. Home pack ODT ondansetron. Return precautions discussed. Discharged home stable. Discharge Plan Departure Patient Disposition: Home Clinical Impression: Acute viral syndrome Activity Restrictions/Additional Instructions: Recent dry cough, abdominal discomfort, nausea vomiting, likely viral syndrome. Swab sent for influenza, COVID, RSV viruses were negative. Symptomatic treatment advised for now, Tylenol as needed for discomfort symptoms. Home pack ondansetron oral dissolvable tablet formulation, to use if needed for control of nausea if recurrent. Drink plenty of fluids. Return to this/nearest emergency department for any change worsening symptoms or if not improving in next couple of days, or at any time prior for any concerns prior Prescriptions: No Action buprenorphine-naloxone [Suboxone] 8-2 mg film 10 mg sublingual BID Referrals: Miscellaneous,Doctor, MD [Primary Care Provider] - Stand Alone Forms: Patient Portal/API, Work Release Note
[2023-11-21] MEDS: ONDANSETRON 4 MG ODT PREPACK 1 BOTTLE MISC (21:28)
== END 2023-11-21 21:30 | disposition home or self-care (01) ==
PROVIDERS: Emergency Provider Emergency Medicine
DX: B34.9 Viral infection, unspecified (principal); R10.9 Unspecified abdominal pain; R11.2 Nausea with vomiting, unspecified; Z11.52 Encounter for screening for COVID-19
CPT/HCPCS: 0241U; 99282

== ENCOUNTER 2023-12-14 08:28 | Emergency (ER) | payer SELFPAY ==
[2023-12-14 08:31] VITALS: BP 133/87; PULSE 99; RESP 18; TEMP 36.2; O2SAT 97; BMI 38.9
--- NOTE | 2023-12-14 08:32 | ED.GENADULT ---
HPI - General Adult General Chief complaint: Recheck/Abnormal Lab/Rx Stated complaint: Ran out of medication suboxone-feels awful Time Seen by Provider: 12/14/23 08:31 History of Present Illness HPI narrative: Patient is a 38-year-old male history opiate and alcohol dependence on Suboxone for the past 2 years, presents to the emergency department for medication refill of his Suboxone. Review of records show that patient is seen here multiple times for this, states that he always has a ?lag time between his refill of doses. He takes 16-4 mg daily (2 tablets). He states that he does have an appointment tomorrow at around 2:30 p.m. after work. States that this ?always happens and is trying to find a different place to obtain his medications. Review of records show that [facility] [place] [facility] his Sub[facility]one. He currently denies any symptoms at this time. Related Data Home Medications Medication Instructions Recorded Confirmed buprenorphine 8 mg-naloxone 2 mg 10 mg sublingual BID 10/28/22 11/05/22 sublingual film (Suboxone) Allergies Allergy/AdvReac Type Severity Reaction Status Date / Time No Known Drug Allergies Allergy Verified 11/21/23 19:10 Review of Systems Review of Systems Narrative: General: Positive for medication refill, Denies fever, chills, weight loss HEENT: Denies headache, eye drainage, eye irritation, head trauma, sore throat, voice change Cardiovascular: Denies any chest pain, palpitations, shortness of breath, tachycardia Respiratory: Denies any shortness of breath, cough, wheeze, stridor GI/: Denies any abdominal pain, nausea, vomiting, diarrhea, bright red blood per rectum, melanotic stools, urinary frequency, urinary retention, dysuria, hematuria MSK: Denies any joint pain, muscle pains, swelling Skin: Denies any rashes, lesions, discoloration Neuro: Denies any headache, lightheadedness, dizziness, fainting, weakness Psych: Denies SI/HI Patient History Medical History Opioid use disorder in remission Social History Smoking Status: Current every day smoker Smoking Status: Current every day smoker tobacco type: vaping alcohol intake frequency: 0-2 drinks per day Substance Use Type: does not use and former substance user Exam Narrative Exam Narrative: General: Cooperative, comfortable, well-developed, not in acute distress HEENT: Normocephalic, atraumatic, PERRLA, normal sclera, eyelids normal, Neck: Active full range of motion, atraumatic Chest: Normal to inspection, negative crepitus, no overlying erythema ecchymosis Respiratory: Normal respiratory effort, not in acute respiratory distress, clear to auscultation bilaterally negative cough, wheeze, tachypnea, rhonchi, rales Cardiology: Regular rate rhythm negative gallop, murmur, rubs GI/: Normal to inspection, soft, nonrigid, no tenderness to palpation, exam deferred MSK: Full range of active range of motion of all 4 extremities, atraumatic Skin: No rashes lesions noted Neuro: Alert awake oriented x3, moves all 4 extremities spontaneously, cranial nerves intact, able to answer all questions appropriately follows commands appropriately Psych: Cooperative, negative suicidal or homicidal ideations Initial Vital Signs Initial Vital Signs: Vital Signs Temperature 97.2 F L 12/14/23 08:31 Pulse Rate 99 H 12/14/23 08:31 Respiratory Rate 18 12/14/23 08:31 Blood Pressure 133/87 12/14/23 08:31 Pulse Oximetry 97 12/14/23 08:31 Oxygen Delivery Method Room Air 12/14/23 08:31 Course Vital Signs Vital signs: Vital Signs - 8 hr 12/14/23 08:31 Temperature 97.2 F L Pulse Rate 99 H Respiratory Rate 18 Blood Pressure 133/87 Pulse Oximetry 97 Oxygen Delivery Method Room Air Medical Decision Making Differential Diagnosis Differential Diagnosis: Medication refill, withdrawal Medical Records Medical records reviewed: Yes I reviewed the patient's medical records. [facility] Narrative Medical decision making narrative: Patient is a 38-year-old male history of opioid use disorder on Suboxone, normally takes 16-4 of Suboxone daily. Patient without any other acute signs of withdrawal, has an appointment tomorrow on 12/15/2023 to obtain his normal refill. Patient will be sent home with a prescription to bridge him given to sublingual tablets here strict return precautions were verbalized with the patient he understands and agrees to being discharged home with outpatient follow up Discharge Plan Departure Prescriptions: No Action buprenorphine-naloxone [Suboxone] 8-2 mg film 10 mg sublingual BID Referrals: Miscellaneous,Doctor, MD [Primary Care Provider] -
[2023-12-14] MEDS: BUPRENORPHINE/NALOXONE 8MG/2MG 1 TAB 2 TAB SL (08:49)
== END 2023-12-14 08:53 | disposition home or self-care (01) ==
PROVIDERS: Emergency Provider Student in an Organized Health Care Education/Training Program
DX: Z76.0 Encounter for issue of repeat prescription (principal); F11.90 Opioid use, unspecified, uncomplicated
CPT/HCPCS: 99283

== ENCOUNTER 2024-02-01 16:24 | Emergency (ER) | payer SELFPAY ==
[2024-02-01 16:26] VITALS: BP 155/87; PULSE 96; RESP 16; TEMP 36.6; O2SAT 99; BMI 46.1
--- NOTE | 2024-02-01 16:50 | ED.RECABL ---
HPI - Recheck/Abnormal Lab/Rx <Maira Alvarez PA-C - Last Filed: 02/01/24 18:49> General Chief Complaint: Recheck/Abnormal Lab/Rx Stated Complaint: needs medication Time Seen by Provider: 02/01/24 16:50 Source: patient Mode of arrival: Family Vehicle History of Present Illness HPI narrative: 38-year-old male chronically on Suboxone for the last 3 years. He has a prior history of heroin and fentanyl abuse along with alcohol. He states he has been clean. He has been out of his medications since due to the holiday and is clinic was closed. He has an appointment tomorrow but feels like he is going through mild withdrawal. He has gone through withdrawal before and this feels similar. His appointment is tomorrow at 4:30 p.m. He is merely requesting 1 dose tonight and plans to hold out until his appointment tomorrow. Apparently he takes TWO 8 mg/2 mg Suboxone's once daily. He is denying any headache, body aches, joint pains, rigors, chest pain, difficulty breathing or any other complaints. All other systems are reviewed and are negative. Related Data Home Medications Medication Instructions Recorded Confirmed buprenorphine 8 mg-naloxone 2 mg 10 mg sublingual BID 10/28/22 11/05/22 sublingual film (Suboxone) Previous Rx's Medication Instructions Recorded buprenorphine 8 mg-naloxone 2 mg 1 film buccal DAILY #1 ea 12/14/23 sublingual film (Suboxone) Allergies Allergy/AdvReac Type Severity Reaction Status Date / Time No Known Drug Allergies Allergy Verified 11/21/23 19:10 Review of Systems <Maira Alvarez PA-C - Last Filed: 02/01/24 18:49> Review of Systems Narrative: All other systems reviewed and are negative. Patient History <Maira Alvarez PA-C - Last Filed: 02/01/24 18:49> Medical History Opioid use disorder in remission Social History Smoking Status: Current every day smoker Smoking Status: Current every day smoker tobacco type: vaping alcohol intake frequency: 0-2 drinks per day Substance Use Type: does not use and former substance user Exam <Maira Alvarez PA-C - Last Filed: 02/01/24 18:49> Initial Vital Signs Initial Vital Signs: Vital Signs Temperature 97.9 F 02/01/24 16:26 Pulse Rate 96 H 02/01/24 16:26 Respiratory Rate 16 02/01/24 16:26 Blood Pressure 155/87 H 02/01/24 16:26 Pulse Oximetry 99 02/01/24 16:26 Oxygen Delivery Method Room Air 02/01/24 16:26 Const Other: Seated, smiling, pleasantly conversing, no obvious distress. Vital signs reviewed and are normal except for slightly elevated systolic. Resp Effort & Inspection: normal respiratory effort and able to speak in complete sentences Auscultation: clear to auscultation bilaterally Cardio Rate: regular rate Rhythm: regular rhythm GI Inspection: normal to inspection Palpation: soft and no hepatosplenomegaly Skin General: no rashes or lesions noted, elasticity normal and turgor normal Neuro General: patient alert, patient awake and patient oriented x3 Other: No focal neurologic deficits. <Haley Rain DO - Last Filed: 02/02/24 07:14> Initial Vital Signs Initial Vital Signs: Vital Signs Temperature 97.9 F 02/01/24 16:26 Pulse Rate 96 H 02/01/24 16:26 Respiratory Rate 16 02/01/24 16:26 Blood Pressure 155/87 H 02/01/24 16:26 Pulse Oximetry 99 02/01/24 16:26 Oxygen Delivery Method Room Air 02/01/24 16:26 Course <Maira Alvarez PA-C - Last Filed: 02/01/24 18:49> Orders Ordered: Discontinued Medications Buprenorphine/Naloxone (Buprenorphine/Naloxone 8mg/2mg 1 Tab) 1 tab SL NOW ONE Stop: 02/01/24 17:46 Last Admin: 02/01/24 17:54 Dose: 1 tab Documented By: KE Buprenorphine/Naloxone (Buprenorphine/Naloxone 8mg/2mg 1 Tab) 1 tab SL DAILY [facility] Buprenorphine/Naloxone (Buprenorphine/Naloxone 8mg/2mg 1 Tab) 1 tab SL NOW ONE Stop: 02/01/24 18:20 Last Admin: 02/01/24 18:32 Dose: 1 tab Documented By: KE Vital Signs Vital signs: Vital Signs - 8 hr 02/01/24 16:26 Temperature 97.9 F Pulse Rate 96 H Respiratory Rate 16 Blood Pressure 155/87 H Pulse Oximetry 99 Oxygen Delivery Method Room Air Vital signs reviewed and are normal except for slightly elevated systolic. <Haley Rain DO - Last Filed: 02/02/24 07:14> Orders Ordered: Discontinued Medications Buprenorphine/Naloxone (Buprenorphine/Naloxone 8mg/2mg 1 Tab) 1 tab SL NOW ONE Stop: 02/01/24 17:46 Last Admin: 02/01/24 17:54 Dose: 1 tab Documented By: KE Buprenorphine/Naloxone (Buprenorphine/Naloxone 8mg/2mg 1 Tab) 1 tab SL DAILY [facility] Buprenorphine/Naloxone (Buprenorphine/Naloxone 8mg/2mg 1 Tab) 1 tab SL NOW ONE Stop: 02/01/24 18:20 Last Admin: 02/01/24 18:32 Dose: 1 tab Documented By: KE Vital Signs Vital signs: Vital Signs - 8 hr 02/01/24 16:26 Temperature 97.9 F Pulse Rate 96 H Respiratory Rate 16 Blood Pressure 155/87 H Pulse Oximetry 99 Oxygen Delivery Method Room Air MDM - Recheck/Abnormal Lab/Rx <Maira Alvarez PA-C - Last Filed: 02/01/24 18:49> [facility] Narrative Medical decision making narrative: No worrisome findings on examination, he was given 1 dose of Suboxone tonight, declined additional bridge prescription as he has an appointment tomorrow afternoon. He plans to look into an alternative clinic to avoid mishaps with his dosing schedule and refills. Discussed red flag warning signs and to seek medical attention if he does develop any worrisome symptoms. Discharge Plan Departure Patient Disposition: Home Clinical Impression: Opioid use disorder in remission, Encounter for medication refill Activity Restrictions/Additional Instructions: You received 16mg/4mg Suboxone tonight. Thank you for coming in, I am sorry you felt unwell. Please follow up with your clinic tomorrow at your scheduled appointment at 4:30 p.m.. Definitely look into an alternative clinic as you had a few challenges with the prescription dosing and having to seek medical attention at the emergency department. You are welcome here any time please do not hesitate to return if you do encounter any issues or have any new or worrisome symptoms. I hope you have good rest of the year and holiday. Prescriptions: No Action buprenorphine-naloxone [Suboxone] 8-2 mg film 10 mg sublingual BID buprenorphine-naloxone [Suboxone] 8-2 mg film 1 film buccal DAILY Qty: 1 0RF Referrals: Miscellaneous,Doctor, MD [Primary Care Provider] - Stand Alone Forms: Patient Portal/API/Survey ED Sign-out <Haley Rain DO - Last Filed: 02/02/24 07:14> Cosign ED Attending Cosignature Attestation: I was immediately available in the department for consultation.
[2024-02-01] MEDS: BUPRENORPHINE/NALOXONE 8MG/2MG 1 TAB SL ×2 (17:54→18:32)
[2024-02-01 18:37] VITALS: BP 145/91; PULSE 80; RESP 16; O2SAT 97
== END 2024-02-01 18:37 | disposition home or self-care (01) ==
PROVIDERS: Emergency Provider Physician Assistant Medical
DX: F11.11 Opioid abuse, in remission (principal); Z76.0 Encounter for issue of repeat prescription
CPT/HCPCS: 99283

== ENCOUNTER 2024-03-28 10:11 | Emergency (ER) | payer OTHER, SELFPAY ==
[2024-03-28 10:28] VITALS: BP 139/97; PULSE 87; RESP 16; TEMP 36.4; O2SAT 100; BMI 42.2
--- NOTE | 2024-03-28 10:40 | ED_ITS ---
HPI - Recheck/Abnormal Lab/Rx General Chief Complaint: Recheck/Abnormal Lab/Rx Stated Complaint: ran out of medicationt-3, not feeling well Time Seen by Provider: 03/28/24 10:38 History of Present Illness HPI narrative: 38-year-old male presents for Suboxone dosing. He was supposed to have an appointment with his PCP 3 days ago, but he was out of state in [place] and missed his appointment. He was an appointment tomorrow at 4:00 p.m., but he has been out of Suboxone for the last 2 days and does not think that he can make it until his appointment tomorrow without a dose now. Denies other complaints. States that all he wants is a dose here in the emergency department and he will be able to make it to his appointment tomorrow. Related Data Home Medications Medication Instructions Recorded Confirmed buprenorphine 8 mg-naloxone 2 mg 10 mg sublingual BID 10/28/22 11/05/22 sublingual film (Suboxone) Previous Rx's Medication Instructions Recorded buprenorphine 8 mg-naloxone 2 mg 1 film buccal DAILY #1 ea 12/14/23 sublingual film (Suboxone) Allergies Allergy/AdvReac Type Severity Reaction Status Date / Time No Known Drug Allergies Allergy Verified 11/21/23 19:10 Patient History Medical History Opioid use disorder in remission Social History Smoking Status: Current every day smoker Smoking Status: Current every day smoker tobacco type: vaping alcohol intake frequency: 0-2 drinks per day Exam Initial Vital Signs Initial Vital Signs: Vital Signs Temperature 97.5 F L 03/28/24 10:28 Pulse Rate 87 03/28/24 10:28 Respiratory Rate 16 03/28/24 10:28 Blood Pressure 139/97 H 03/28/24 10:28 Pulse Oximetry 100 03/28/24 10:28 Oxygen Delivery Method Room Air 03/28/24 10:28 Const: Awake, alert, no acute distress, nontoxic appearing Cardiac: regular rate, regular rhythm RESP: unlabored, conversational without dyspnea Skin: Warm, Dry, intact, no rashes Neuro: AO x3, CN II-XII grossly intact, moves all extremities Course Orders Ordered: Buprenorphine/Naloxone (Buprenorphine/Naloxone 8mg/2mg 1 Tab) 2 tab SL DAILY [facility] Vital Signs Vital signs: Vital Signs - 8 hr 03/28/24 10:28 Temperature 97.5 F L Pulse Rate 87 Respiratory Rate 16 Blood Pressure 139/97 H Pulse Oximetry 100 Oxygen Delivery Method Room Air MDM - Recheck/Abnormal Lab/Rx MDM Narrative Medical decision making narrative: Patient requesting a single dose of his usual Suboxone until he can make it to his refill appointment tomorrow. Does not need or want a prescription sent to the pharmacy. Suboxone given in the emergency department. Patient counseled on the importance of keeping his follow up appointment tomorrow as scheduled. Discharge Plan Departure Patient Disposition: Home Clinical Impression: Opioid use disorder in remission Instructions: DI for Taking Pain Medication Activity Restrictions/Additional Instructions: Keep your appointment as scheduled tomorrow. If you have any new or worsening concerns please come back to the ER for repeat evaluation as needed. Prescriptions: No Action buprenorphine-naloxone [Suboxone] 8-2 mg film 10 mg sublingual BID buprenorphine-naloxone [Suboxone] 8-2 mg film 1 film buccal DAILY Qty: 1 0RF Referrals: Miscellaneous,Doctor, MD [Primary Care Provider] - Stand Alone Forms: Patient Portal/API/Survey
[2024-03-28] MEDS: BUPRENORPHINE/NALOXONE 8MG/2MG 1 TAB 2 TAB SL (11:01)
== END 2024-03-28 11:11 | disposition home or self-care (01) ==
PROVIDERS: Emergency Provider Emergency Medicine
DX: F11.91 Opioid use, unspecified, in remission (principal); F17.210 Nicotine dependence, cigarettes, uncomplicated
CPT/HCPCS: 99283

== ENCOUNTER → 2024-09-20 18:27 | Outpatient (CLI) | payer OTHER, SELFPAY ==
[2024-09-20 19:27] LABS: Influenza A - CEPHEID Flu A NEGATIVE (NEGATIVE); Influenza B - CEPHEID Flu B NEGATIVE (NEGATIVE)
[2024-09-20 19:32] LABS: COVID-19 CEPHEID 4-PLEX PCR Negative (Negative)
== END ==
PROVIDERS: Visit Provider Chiropractor
DX: R05.1 Acute cough (principal)
CPT/HCPCS: 87637

== ENCOUNTER 2024-11-30 09:50 | Emergency (ER) | payer OTHER, SELFPAY ==
[2024-11-30] VITALS (14 sets, daily range): BP systolic 120–142; BP diastolic 77–95; PULSE 68–83; RESP 10–23; TEMP 36.9; O2SAT 95–99; BMI 49.4
--- NOTE | 2024-11-30 10:03 | EKG_ITS ---
[address] [address] Test Date: 2024-11-30 Pat Name: Wesley Gerard Department: Room: Gender: Male [employer] Specialist: REBEKAH : 1985 Requested By: Order Number: [id number] Reading MD: Abner Alvarado Measurements Intervals [place] Rate: 77 P: 28 MO: 178 QRS: 39 QRSD: 100 T: 21 QT: 372 QTc: 420 Interpretive Statements Normal sinus rhythm Incomplete right bundle branch block Electronically Signed On 12-01-2024 8:14:21 PDT by Abner Alvarado
--- NOTE | 2024-11-30 10:03 | DI.RAD.S_ITS ---
PROCEDURE: XR CHEST 1V INDICATIONS: Chest Pain TECHNIQUE: One view of the chest was acquired. COMPARISON: None. FINDINGS: Surgical changes and devices: None. Lungs and pleura: Lungs are clear. No pleural effusions or pneumothorax. Mediastinum: Mediastinal contours appear normal. Heart size is normal. Bones and chest wall: No suspicious bony lesions. Overlying soft tissues appear unremarkable. IMPRESSION: No acute cardiopulmonary abnormality is seen. Approved by: Cecil Ring M.D. on 11/30/2024 at 10:25
[2024-11-30 10:41] LABS: Add Manual Diff / Slide Review NO; Hematocrit 40.6 % (41-53); Hemoglobin 13.7 g/dL (13.5-17.5); Lymphocytes Absolute Auto 1700 /uL (1100-4500); Mean Corpuscular HGB Conc 33.8 % (30-36); Mean Corpuscular Hemoglobin 31.0 PG (26-34); Mean Corpuscular Volume 91.6 fL (80-100); Platelet Count 207 X10^3/uL (150-400)
[2024-11-30 10:51] LABS: INR 0.9 (0.9-1.3); Prothrombin Time 10.5 SECONDS (9.4-12.5)
[2024-11-30 10:54] LABS: PTT Partial Thromboplastin Tim 30 SECONDS (25.1-36.5)
--- NOTE | 2024-11-30 10:57 | ED.DIZZY ---
HPI - Dizziness General Chief Complaint: Dizziness Stated Complaint: Dizzy/vertigo/ vomit since waking Time Seen by Provider: 11/30/24 10:29 Source: patient Mode of arrival: Ambulatory History of Present Illness HPI Narrative: Patient awoke this morning with dizziness feels like the environment around him is spinning. Has nausea. No slurred speech facial droop numbness tingling or weakness. Denies any history of heart attack strokes diabetes hypertension hyperlipidemia. No recent illness. No hearing changes no vision changes. No prior history of vertigo. Patient has slow steady gait in hallway to his room from triage. Does have horizontal nystagmus on exam. He went to bed last night without any dizziness. Related Data Home Medications ?Medication ?Instructions ?Recorded ?Confirmed trazodone 50 mg tablet 50 - 100 mg PO ONCE PM PRN insomnia 10/27/24 10/27/24 Previous Rx's ?Medication ?Instructions ?Recorded buprenorphine 8 mg-naloxone 2 mg 1 film buccal DAILY #1 ea 12/14/23 sublingual film (Suboxone) meclizine 50 mg tablet 50 mg PO BID PRN dizziness or 11/30/24 vertigo #20 tabs meclizine 50 mg tablet 50 mg PO DAILY PRN dizziness or 11/30/24 vertigo #20 tabs Allergies Allergy/AdvReac Type Severity Reaction Status Date / Time No Known Drug Allergies Allergy Verified 10/27/24 13:50 Review of Systems Review of Systems Narrative: GENERAL: Negative chills, fatigue, malaise, fever, sweats. HEENT: Negative sinus pain, ear pain, sore throat RESPIRATORY: Negative dyspnea, cough CARDIOVASCULAR: Negative chest pain, palpitations GASTROINTESTINAL: Negative vomiting, nausea, abdominal pain : Negative dysuria, frequency, hematuria MUSCULOSKELETAL: Negative muscle or bony pain SKIN: Negative rash, skin lesions NEUROLOGIC: Negative weakness, numbness, positive dizziness ROS Unobtainable: All systems reviewed & are unremarkable except as noted in HPI and below Patient History Medical History Opioid use disorder in remission Social History Smoking Status: Current every day smoker Smoking Status: Current every day smoker tobacco type: vaping alcohol intake frequency: 0-2 drinks per day Exam Narrative Exam Narrative: GENERAL: in no distress, not toxic not dyspneic HEAD: Normocephalic. EYES: Pupils equal round ENT: Mucous membranes moist. NECK: Trachea midline. CARDIOVASCULAR: Regular rate and rhythm RESPIRATORY: Clear to auscultation. Breath sounds equal bilaterally. No wheezes, rales, or rhonchi. GASTROINTESTINAL: Abdomen soft, non-tender EXTREMITIES: No gross deformities. BACK: No flank tenderness. NEURO: AOx4. Clear speech no facial droop light touch intact bilateral face hands and legs strong equal ward secretary negative pronator drift elevate each leg without drift. There is horizontal nystagmus with the eyes.. Fast exam is negative SKIN: Warm and dry PSYCH: Not anxious, is cooperative Initial Vital Signs Initial Vital Signs: Vital Signs Temperature 98.4 F 11/30/24 09:56 Pulse Rate 80 11/30/24 09:56 Respiratory Rate 18 11/30/24 09:56 Blood Pressure 142/93 H 11/30/24 09:56 Pulse Oximetry 99 11/30/24 09:56 Oxygen Delivery Method Room Air 11/30/24 09:56 Course Orders Ordered: ED Orders 11/30/24 10:03 XR chest 1V Stat EKG-12 Lead Stat 11/30/24 10:32 Complete Blood Count AUTO DIFF Stat Comprehensive Metabolic Panel Stat Lipase Stat Magnesium Stat NT-proBNP (BNP-Adult 18+) Stat PTT Partial Thromboplastin Shaielsh Stat Prothrombin Time INR Stat Troponin & CK Cardiac Panel Stat 11/30/24 12:17 CT head/brain wo con Stat Discontinued Medications Sodium Chloride (Normal Saline 0.9%) 1,000 mls @ 1,000 mls/hr IV BOLUS ONE Stop: 11/30/24 12:01 Last Infusion: 11/30/24 12:46 Dose: Infused Documented By: Admin: 11/30/24 11:21 Dose: 1,000 mls/hr Documented By: PHILIPP Meclizine HCl (Meclizine Hcl 12.5 Mg Tablet) 50 mg PO NOW ONE Stop: 11/30/24 11:03 Last Admin: 11/30/24 11:21 Dose: 50 mg Documented By: PHILIPP Ondansetron HCl (Ondansetron 4 Mg/2 Ml Inj) 4 mg IV NOW ONE Stop: 11/30/24 11:03 Last Admin: 11/30/24 11:20 Dose: 4 mg Documented By: PHILIPP Vital Signs Vital signs: Vital Signs - 8 hr 11/30/24 09:56 11/30/24 10:01 11/30/24 10:05 Temperature 98.4 F Pulse Rate 80 83 Respiratory Rate 18 Blood Pressure 142/93 H 124/79 Pulse Oximetry 99 99 Oxygen Delivery Method Room Air 11/30/24 10:05 11/30/24 10:30 11/30/24 10:33 Temperature Pulse Rate 80 76 74 Respiratory Rate 13 18 12 Blood Pressure Pulse Oximetry 95 96 95 Oxygen Delivery Method 11/30/24 10:33 11/30/24 11:00 11/30/24 11:01 Temperature Pulse Rate 77 75 Respiratory Rate 13 23 Blood Pressure 141/77 H Pulse Oximetry 97 95 Oxygen Delivery Method 11/30/24 11:01 11/30/24 11:26 11/30/24 11:26 Temperature Pulse Rate 73 Respiratory Rate 16 Blood Pressure 131/80 123/94 H Pulse Oximetry 96 Oxygen Delivery Method 11/30/24 11:30 11/30/24 11:31 11/30/24 11:31 Temperature Pulse Rate 73 71 Respiratory Rate 14 18 Blood Pressure 141/95 H Pulse Oximetry 95 95 Oxygen Delivery Method 11/30/24 12:00 11/30/24 12:00 11/30/24 12:26 Temperature Pulse Rate 72 Respiratory Rate 13 Blood Pressure 141/89 H 139/86 Pulse Oximetry 97 Oxygen Delivery Method 11/30/24 12:26 11/30/24 12:30 11/30/24 12:30 Temperature Pulse Rate 76 72 Respiratory Rate 12 10 L Blood Pressure 139/85 Pulse Oximetry 97 96 Oxygen Delivery Method 11/30/24 13:00 11/30/24 13:00 Temperature Pulse Rate 68 Respiratory Rate 10 L Blood Pressure 120/85 Pulse Oximetry 97 Oxygen Delivery Method MDM - Dizziness Lab Data 11/30/24 10:32 11/30/24 10:32 Labs: Lab Results 11/30/24 Range/Units 10:32 WBC 6.5 (4.5-11.0) X10^3/uL RBC 4.43 L (4.5-5.9) X10^6/uL Hgb 13.7 (13.5-17.5) g/dL Hct 40.6 L (41-53) % MCV 91.6 (80-100) fL MCH 31.0 (26-34) PG MCHC 33.8 (30-36) % RDW 13.3 (11.6-14.8) % Plt Count 207 (150-400) X10^3/uL Neut % (Auto) 63.5 (50-75) % Lymph % (Auto) 26.6 (25-40) % Woods % (Auto) 7.8 (3-14) % Eos % (Auto) 1.6 L (2-4) % Baso % (Auto) 0.5 (0-2) % Neut # (Auto) 4100 (3436-5710) /uL Lymph # (Auto) 1700 (0134-3234) /uL Woods # (Auto) 500 (0-900) /uL Eos # (Auto) 100 (0-450) /uL Baso # (Auto) 0 (0-100) /uL PT 10.5 (9.4-12.5) SECONDS INR 0.9 (0.9-1.3) APTT 30 (25.1-36.5) SECONDS Sodium 140 (137-145) mmol/L Potassium 4.3 (3.4-5.1) mmol/L Chloride 104 (98-107) mmol/L Carbon Dioxide 28 (22-32) mmol/L BUN 14 (9-20) mg/dL Creatinine 0.77 (0.66-1.25) mg/dL Estimated GFR > 60 (>60) mL/min BUN/Creatinine Ratio 18.2 (6-22) Glucose 104 H (70-99) mg/dL Calcium 9.0 (8.4-10.2) mg/dL Magnesium 1.8 (1.6-2.3) mg/dL Total Bilirubin 0.4 (0.2-1.3) mg/dL AST 24 (17-59) IU/L ALT 21 (<50) IU/L Alkaline Phosphatase 73 (38-126) U/L Total Creatine Kinase 122 (55-170) U/L Troponin I < 0.012 (0.01-0.034) ng/mL NT-Pro-B Natriuret Pep 72 (<125) pg/mL Total Protein 7.2 (6.3-8.2) g/dL Albumin 4.2 (3.5-5.0) g/dL Globulin 3.0 (1.7-4.1) g/dL Albumin/Globulin Ratio 1.4 (1.0-2.8) Lipase 26 (23-300) U/L Imaging Data CT scan - head: Radiologist's Impression: [address] [address] [address] Scan Report Signed Patient: Wesley Gerard MR#: [id number] : 1985 Acct:[id number] Age/Sex: 39 / M Date of Service: 11/30/24 Loc: ED Accession Number: [id number] Procedure: CT head/brain wo con Ordering Provider: Patrick Woodard MD PROCEDURE: CT HEAD/BRAIN WO CON INDICATIONS: Dizziness TECHNIQUE: Noncontrast 4.5 mm thick angled axial sections acquired from the foramen magnum to the vertex, with coronal and sagittal reformats. For radiation dose reduction, the following was used: automated exposure control, adjustment of mA and/or kV according to patient size. COMPARISON: [facility], CT, CT HEAD WITHOUT CONTRAST, 08/14/2021, 17:44. FINDINGS: Image quality: Diagnostic. CSF spaces: Basal cisterns are patent. No extra-axial fluid collections. Ventricles are normal in size and shape. Brain: No midline shift. No intracranial mass effect or hemorrhage. Villarreal-white matter interface is normal. Skull and face: Calvarium and visualized facial bones are intact, without suspicious lesions. Sinuses: Visualized sinuses and mastoids are clear. IMPRESSION: No acute intracranial pathology. Dictated by: Desirae Partida MD, PhD on 11/30/2024 at 12:28 Approved by: Desirae Partida MD, PhD on 11/30/2024 at 12:30 Chest x-ray: Radiologist's Impression: [address] [address] XRay Report Signed Patient: Wesley Gerard MR#: [id number] : 1985 Acct:[id number] Age/Sex: 39 / M Date of Service: 11/30/24 Loc: ED Accession Number: [id number] Procedure: XR chest 1V Ordering Provider: Patrick Woodard MD PROCEDURE: XR CHEST 1V INDICATIONS: Chest Pain TECHNIQUE: One view of the chest was acquired. COMPARISON: None. FINDINGS: Surgical changes and devices: None. Lungs and pleura: Lungs are clear. No pleural effusions or pneumothorax. Mediastinum: Mediastinal contours appear normal. Heart size is normal. Bones and chest wall: No suspicious bony lesions. Overlying soft tissues appear unremarkable. IMPRESSION: No acute cardiopulmonary abnormality is seen. Approved by: Cecil Ring M.D. on 11/30/2024 at 10:25 [facility] Narrative Medical decision making narrative: Patient awoke this morning with dizziness feels like the environment around him is spinning. Has nausea. No slurred speech facial droop numbness tingling or weakness. Denies any history of heart attack strokes diabetes hypertension hyperlipidemia. No recent illness. No hearing changes no vision changes. No prior history of vertigo. Patient has slow steady gait in hallway to his room from triage. Does have horizontal nystagmus on exam. He went to bed last night without any dizziness. MDM After history and exam, CT head EKG CBC CMP Zofran normal saline meclizine Differential considered: Includes but not limited to vertigo stroke TIA arrhythmia dehydration anemia Medical records reviewed: No recent visit for this complaint Lab Test results independently reviewed as above. Pertinent findings: WBC 6.5 hemoglobin 13.7 sodium 140 potassium 4.3 glucose 104 troponin less than 0.012 BNP 72 Independently reviewed EKG normal sinus rhythm rate [address]-elevation or depression Imaging studies independently reviewed: CT head no acute finding chest x-ray no acute finding Consultations: None indicated at this time. Re-evaluations: 1:11 p.m.. Symptoms have completely resolved. Patient is steady self gait from his room to the bathroom. He states no dizziness after medications given. Discussion: Appropriate for discharge home. Exam is reassuring. Return precautions reviewed. Patient resolved symptoms with Antivert. Clinically is vertigo Diagnosis: Vertigo Discharge Plan Departure Patient Disposition: Home Clinical Impression: Vertigo Instructions: DI for Vertigo Activity Restrictions/Additional Instructions: You are being treated for vertigo. Your laboratory studies and CAT scan imaging and EKG are reassuring. Prescription has been provided for you still for dizziness/vertigo. Please see your family doctor in a week for re-evaluation. Return if worse if any questions or concerns Prescriptions: New meclizine 50 mg tablet 50 mg PO DAILY PRN (Reason: dizziness or vertigo) Qty: 20 0RF meclizine 50 mg tablet 50 mg PO BID PRN (Reason: dizziness or vertigo) Qty: 20 0RF No Action trazodone 50 mg tablet 50 - 100 mg PO ONCE PM PRN (Reason: insomnia) buprenorphine-naloxone [Suboxone] 8-2 mg film 1 film buccal DAILY Qty: 1 0RF Stand Alone Forms: Patient Portal/API, Work Release Note
[2024-11-30 11:00] LABS: Alanine Aminotransferase 21 IU/L (<50); Alkaline Phosphatase 73 U/L (38-126); Blood Urea Nitrogen 14 mg/dL (9-20); Calcium 9.0 mg/dL (8.4-10.2); Chloride 104 mmol/L (98-107); Creatine Kinase 122 U/L (55-170); Estimated Glomerular Filt Rate > 60 mL/min (>60); Glucose 104 mg/dL (70-99); HEMOLYSIS < 15 (0-50); Lipase 26 U/L (23-300); Magnesium 1.8 mg/dL (1.6-2.3); Potassium 4.3 mmol/L (3.4-5.1); Sodium 140 mmol/L (137-145); Total Protein 7.2 g/dL (6.3-8.2)
[2024-11-30 11:01] LABS: Albumin 4.2 g/dL (3.5-5.0); Albumin Globulin Ratio 1.4 (1.0-2.8); Carbon Dioxide 28 mmol/L (22-32); Globulin 3.0 g/dL (1.7-4.1)
[2024-11-30 11:12] LABS: NT-proBNP (BNP-Adult 18+) 72 pg/mL (<125); Troponin I < 0.012 ng/mL (0.01-0.034)
[2024-11-30] MEDS: ONDANSETRON 4 MG/2 ML INJ IV (11:20)
[2024-11-30] MEDS: MECLIZINE HCL 12.5 MG TABLET 50 MG PO (11:21)
[2024-11-30] MEDS: SODIUM CHLORIDE 0.9% 1,000 ML 1000 ML IV (11:21)
--- NOTE | 2024-11-30 12:17 | DI.CT.S_ITS ---
PROCEDURE: CT HEAD/BRAIN WO CON INDICATIONS: Dizziness TECHNIQUE: Noncontrast 4.5 mm thick angled axial sections acquired from the foramen magnum to the vertex, with coronal and sagittal reformats. For radiation dose reduction, the following was used: automated exposure control, adjustment of mA and/or kV according to patient size. COMPARISON: [facility], CT, CT HEAD WITHOUT CONTRAST, 08/14/2021, 17:44. FINDINGS: Image quality: Diagnostic. CSF spaces: Basal cisterns are patent. No extra-axial fluid collections. Ventricles are normal in size and shape. Brain: No midline shift. No intracranial mass effect or hemorrhage. Villarreal- white matter interface is normal. Skull and face: Calvarium and visualized facial bones are intact, without suspicious lesions. Sinuses: Visualized sinuses and mastoids are clear. IMPRESSION: No acute intracranial pathology. Dictated by: Desirae Partida MD, PhD on 11/30/2024 at 12:28 Approved by: Desirae Partida MD, PhD on 11/30/2024 at 12:30
== END 2024-11-30 13:19 | disposition home or self-care (01) ==
PROVIDERS: Emergency Provider Emergency Medicine
DX: R42 Dizziness and giddiness (principal); R07.9 Chest pain, unspecified
CPT/HCPCS: 36415; 70450; 71045; 80053; 82550; 83690; 83735; 83880; 84484; 85025; 85610; 85730; 93005; 96361; 96374; 99284; J2405

== ENCOUNTER → 2024-12-21 12:20 | Outpatient (CLI) | payer OTHER, SELFPAY ==
[2024-12-21 14:16] LABS: COVID-19 CEPHEID 4-PLEX PCR Negative (Negative); Influenza A - CEPHEID Flu A NEGATIVE (NEGATIVE); Influenza B - CEPHEID Flu B NEGATIVE (NEGATIVE)
== END ==
PROVIDERS: Visit Provider Physician Assistant
DX: Z20.828 Contact with and (suspected) exposure to other viral communicable diseases (principal)
CPT/HCPCS: 87637

== ENCOUNTER 2025-01-05 11:02 | Emergency (ER) | payer OTHER, SELFPAY ==
[2025-01-05 11:10] VITALS: BP 173/101; PULSE 90; RESP 17; TEMP 37.4; O2SAT 93; BMI 49.4
--- NOTE | 2025-01-05 11:16 | DI.RAD.S_ITS ---
PROCEDURE: XR CHEST 2V
--- NOTE | 2025-01-05 11:17 | ED_ITS ---
HPI - URI/Sore Throat
--- NOTE | 2025-01-05 11:17 | ED.URI ---
HPI - URI/Sore Throat General Chief Complaint: Upper Respiratory Symptoms Stated Complaint: Tested positive for covid , wants meds Time Seen by Provider: 01/05/25 11:10 Source: patient Mode of arrival: Ambulatory History of Present Illness HPI Narrative: Mr. Gerard is a pleasant 39-year-old man with a past medical history of opioid use disorder in remission on Suboxone who presents to the emergency department for concern of COVID symptoms x3 days. Patient states Friday evening he started feeling sick with congestion, sore throat, productive cough, shortness of breath which he should sheets with nasal congestion. He took a home COVID test which was positive and he is concerned for this as he does not want to miss work. He is not interested in Paxlovid. He denies chest pain, dyspnea on exertion, orthopnea, abdominal pain, nausea, vomiting, diarrhea, ear pain. He does feel very fatigued. He has not taken any medication except Suboxone, he did take ibuprofen yesterday. Denies fever. Reports that he does vape, denies any other smoking. Denies asthma or COPD. Related Data Home Medications ?Medication ?Instructions ?Recorded ?Confirmed trazodone 50 mg tablet 50 - 100 mg PO ONCE PM PRN insomnia 10/27/24 12/21/24 buprenorphine 8 mg-naloxone 2 mg 1 tab sublingual BID 12/21/24 12/21/24 sublingual tablet rizatriptan PO 12/21/24 Previous Rx's ?Medication ?Instructions ?Recorded meclizine 50 mg tablet 50 mg PO DAILY PRN dizziness or 11/30/24 vertigo #20 tabs naproxen 500 mg tablet 500 mg PO BID PRN pain #20 tabs 12/21/24 ondansetron 4 mg disintegrating 4 mg PO Q8H PRN nausea and 12/21/24 tablet vomiting #20 tabs benzonatate 200 mg capsule 200 mg PO BID-TID PRN cough #20 01/05/25 caps Allergies Allergy/AdvReac Type Severity Reaction Status Date / Time No Known Drug Allergies Allergy Verified 01/05/25 11:11 Review of Systems Review of Systems ROS Unobtainable: All systems reviewed & are unremarkable except as noted in HPI and below Patient History Medical History Opioid use disorder in remission tobacco type: vaping alcohol intake frequency: 0-2 drinks per day Exam Narrative Exam Narrative: GENERAL: 39 year old patient appears stated age. Overweight patient, in no acute distress. HEAD: Atraumatic. Normocephalic. EYES: Extraocular motions intact. No scleral icterus. No injection or drainage. ENT: Nose without bleeding, purulent drainage. Throat with mild posterior oropharyngeal erythema, uvula is midline, no tonsillar hypertrophy or exudates. NECK: Trachea midline. Cervical ROM intact. CARDIOVASCULAR: Regular rate and rhythm. RESPIRATORY: ?Nonlabored respirations. ?Speaking in clear, full sentences. ?Clear to auscultation. Breath sounds equal bilaterally. No wheezes, rales, or rhonchi. ? NEURO: AOx3. ?Clear speech. ?Moves all 4 extremities appropriately. Steady gait. SKIN: No rash or erythema of visible areas Initial Vital Signs Initial Vital Signs: Vital Signs Temperature 99.3 F 01/05/25 11:10 Pulse Rate 90 01/05/25 11:10 Respiratory Rate 17 01/05/25 11:10 Blood Pressure 173/101 H 01/05/25 11:10 Pulse Oximetry 93 01/05/25 11:10 Oxygen Delivery Method Room Air 01/05/25 11:10 Course Orders Ordered: Discontinued Medications Acetaminophen (Acetaminophen 325 Mg Tablet) 975 mg PO NOW ONE Stop: 01/05/25 11:17 Last Admin: 01/05/25 11:41 Dose: 975 mg Documented By: SOHAM Ibuprofen (Ibuprofen 400 Mg Tablet) 400 mg PO NOW ONE Stop: 01/05/25 11:17 Last Admin: 01/05/25 11:41 Dose: 400 mg Documented By: SOHAM Vital Signs Vital signs: Vital Signs - 8 hr 01/05/25 11:10 01/05/25 12:23 Temperature 99.3 F Pulse Rate 90 86 Respiratory Rate 17 18 Blood Pressure 173/101 H 148/86 H Pulse Oximetry 93 94 Oxygen Delivery Method Room Air Room Air MDM - URI/Sore Throat Medical Records Attestation: I reviewed the patient's medical records. Lab Data Labs: Lab Results 01/05/25 Range/Units 11:15 SARS-CoV-2 (PCR) Positive H (Negative) Influenza A (RT-PCR) Flu a negative (NEGATIVE) Influenza B (RT-PCR) Flu b negative (NEGATIVE) RSV (PCR) Negative (Negative) Imaging Data Chest x-ray: Radiologist's Impression: PROCEDURE: XR CHEST 2V INDICATIONS: productive cough, short of breath, COVID TECHNIQUE: 2 views of the chest were acquired. COMPARISON: [facility], CR, XR CHEST 1V, 11/30/2024, 10:04. FINDINGS: Surgical changes and devices: None. Lungs and pleura: An incomplete inspiratory result is noted, causing a crowded appearance to the lung markings. No focal infiltrates are seen. No pneumothorax or significant pleural effusions are seen. Mediastinum: Mediastinal contours are normal. Heart size is normal. Bones and chest wall: No suspicious bony abnormalities. Soft tissues appear unremarkable. IMPRESSION: Low lung volumes, without an acute abnormality seen by plain film. Dictated by: Dat Boggs M.D. on 01/05/2025 at 10:44 Approved by: Dat Boggs M.D. on 01/05/2025 at 10:45 MDM Narrative Medical decision making narrative: 39-year-old man with a past medical history of opioid use disorder in remission on Suboxone who presents to the emergency department for concern of COVID symptoms x3 days. Differential diagnosis includes but is not limited to viral URI, bronchitis, pneumonia, sinusitis, etc. On exam patient is in no acute distress, nontoxic appearing. Vital signs do reveal mildly elevated blood pressure 173/101, temperature 99.3?. He is not tachycardic tachypneic or hypoxic. Lungs are without coarse breath sounds or wheezing. He is not having any chest pain or dyspnea on exertion. Given productive cough shortness breath we will obtain chest x-ray, treat with ibuprofen and acetaminophen, patient would like a viral swab here in the ED. We discussed negatives and positive of Paxlovid, he declines which I am agreeable to. Chest x-ray reveals low lung volumes without acute abnormality seen. Viral swab is positive for COVID-19. Discussed supportive care including rest, hydration, warm tea with honey, prescription for benzonatate, ibuprofen and acetaminophen as needed. Discussed ER return precautions and PCP follow up. Patient verbalized understanding of all information is happy with the plan. He is stable for discharge home, vital signs improved, work note provided. Discharge Plan Departure Patient Disposition: Home Clinical Impression: COVID-19 Instructions: DI for COVID-19 (Suspected or Confirmed ) Activity Restrictions/Additional Instructions: Dear Mr. Gerard, Thank you for coming to the emergency department. Today you were evaluated for upper respiratory infection symptoms. You did test positive for COVID. You tested negative for influenza a, influenza B and RSV. Your chest x-ray did not reveal any pneumonia. The current CDC COVID guidelines recommend that you can go back to work/normal activities when for at least 24 hours both of the following things are true: Your symptoms are getting better overall, AND You have not had a fever) and are not using fever reducing medication such as ibuprofen/Advil or Tylenol/acetaminophen). Please return to the emergency department you develop chest pain, difficulty breathing, symptoms getting worse after week or any other concerns. Please follow up with your primary care doctor within the next 2-3 days for ER follow-up. (If you do not have a PCP you can call [phone]. ?to schedule an appointment with an [facility] Primary Care Provider) IF YOU DEVELOP ANY NEW OR WORSENING SYMPTOMS, RETURN TO THE ER! Please read the attached instructions, they highlight more specific treatments and interventions for you at home. Thank you for letting me participate in your care, Lauren Yeung PA-C Prescriptions: New benzonatate 200 mg capsule 200 mg PO BID-TID PRN (Reason: cough) Qty: 20 0RF No Action buprenorphine-naloxone 8-2 mg tablet, sublingual 1 tab sublingual BID rizatriptan PO naproxen 500 mg tablet 500 mg PO BID PRN (Reason: pain) Qty: 20 0RF ondansetron 4 mg tablet,disintegrating 4 mg PO Q8H PRN (Reason: nausea and vomiting) Qty: 20 0RF Rx Instructions: as needed; use sparingly trazodone 50 mg tablet 50 - 100 mg PO ONCE PM PRN (Reason: insomnia) meclizine 50 mg tablet 50 mg PO DAILY PRN (Reason: dizziness or vertigo) Qty: 20 0RF Referrals: Jese Tidwell MD [Primary Care Provider, Internal Medicine] Stand Alone Forms: Patient Portal/API, Work Release Note
[2025-01-05] MEDS: IBUPROFEN 400 MG TABLET PO (11:41)
[2025-01-05] MEDS: ACETAMINOPHEN 325 MG TABLET 975 MG PO (11:41)
[2025-01-05 11:59] LABS: Influenza A - CEPHEID Flu A NEGATIVE (NEGATIVE); Influenza B - CEPHEID Flu B NEGATIVE (NEGATIVE)
[2025-01-05 12:00] LABS: COVID-19 CEPHEID 4-PLEX PCR POSITIVE (Negative)
[2025-01-05 12:23] VITALS: BP 148/86; PULSE 86; RESP 18; O2SAT 94
== END 2025-01-05 12:25 | disposition home or self-care (01) ==
PROVIDERS: Emergency Provider Physician Assistant; PCP Internal Medicine
DX: U07.1 COVID-19 (principal)
CPT/HCPCS: 71046; 87637; 99283

== ENCOUNTER → 2025-01-14 13:43 | Outpatient (CLI) | payer OTHER, SELFPAY ==
[2025-01-14 17:09] LABS: Influenza A - CEPHEID Flu A NEGATIVE (NEGATIVE); Influenza B - CEPHEID Flu B NEGATIVE (NEGATIVE)
[2025-01-14 17:16] LABS: COVID-19 CEPHEID 4-PLEX PCR Negative (Negative)
== END ==
PROVIDERS: PCP Internal Medicine; Visit Provider Nurse Practitioner Family
DX: R05.1 Acute cough (principal); J02.9 Acute pharyngitis, unspecified
CPT/HCPCS: 87070; 87637

== ENCOUNTER 2025-01-20 11:01 | Emergency (ER) | payer OTHER, SELFPAY ==
[2025-01-20 11:16] VITALS: BP 146/85; PULSE 82; RESP 16; TEMP 36.7; O2SAT 96; BMI 49.4
--- NOTE | 2025-01-20 12:11 | ED.HA ---
HPI - Headache General Chief Complaint: Headache Stated Complaint: Migraines all night Time Seen by Provider: 01/20/25 12:08 Mode of arrival: Ambulatory History of Present Illness HPI Narrative: This is a 39-year-old male presents emergency department due to worsening migraine for the last couple of days. He has tried his Triptan medication without significant relief. He states that he was seen in the walk-in clinic a month ago for very similar symptoms and was given ?a shot of something? that significantly helps improve his pain and is requesting similar. Denies any slurred speech, facial drooping, nausea, vomiting, weakness, or any other concerning signs or symptoms. Related Data Home Medications ?Medication ?Instructions ?Recorded ?Confirmed trazodone 50 mg tablet 50 - 100 mg PO ONCE PM PRN insomnia 10/27/24 01/14/25 buprenorphine 8 mg-naloxone 2 mg 1 tab sublingual BID 12/21/24 01/14/25 sublingual tablet rizatriptan PO 12/21/24 01/14/25 Previous Rx's ?Medication ?Instructions ?Recorded meclizine 50 mg tablet 50 mg PO DAILY PRN dizziness or 11/30/24 vertigo #20 tabs naproxen 500 mg tablet 500 mg PO BID PRN pain #20 tabs 12/21/24 ondansetron 4 mg disintegrating 4 mg PO Q8H PRN nausea and 12/21/24 tablet vomiting #20 tabs Allergies Allergy/AdvReac Type Severity Reaction Status Date / Time No Known Drug Allergies Allergy Verified 01/14/25 13:39 Review of Systems Review of Systems Narrative: GENERAL: Denies chills, fatigue, malaise, fever, sweats. HEENT: Reports head pain Denies sinus pain, ear pain, sore throat, difficulty swallowing, dizziness. RESPIRATORY: Denies dyspnea, cough, wheezing, hemoptysis, sputum. CARDIOVASCULAR: Denies chest pain, palpitations, orthopnea, edema, GASTROINTESTINAL: Denies nausea, vomiting, abdominal pain, diarrhea, constipation, melena. : Denies dysuria, frequency, incontinence, hematuria, urinary retention. MUSCULOSKELETAL: denies weakness, joint pain, or bony pain SKIN: Denies rash, skin lesions, or other NEUROLOGIC: Denies weakness, headache, numbness, change in speech, confusion, seizures, incoordination. PSYCHIATRIC: No concerning psychosocial issues. 12 point review of systems is negative except for those stated above Patient History Medical History Opioid use disorder in remission Social History Smoking Status: Current every day smoker Smoking Status: Current every day smoker tobacco type: vaping alcohol intake frequency: 0-2 drinks per day Exam Narrative Exam Narrative: GENERAL: Well-developed patient, in mild distress. HEAD: Atraumatic. Normocephalic. EYES: Pupils equal round and reactive. Extraocular motions intact. No scleral icterus. No injection or drainage. ENT: Nose without bleeding, purulent drainage. Throat without erythema, tonsillar hypertrophy or exudate. Airway patent. NECK: Trachea midline. Non tender EXTREMITIES: No edema or joint tenderness. NEURO: AOx3. Cranial nerves 2-12 intact SKIN: No rash or erythema of visible areas Initial Vital Signs Initial Vital Signs: Vital Signs Temperature 98.0 F 01/20/25 11:16 Pulse Rate 82 01/20/25 11:16 Respiratory Rate 16 01/20/25 11:16 Blood Pressure 146/85 H 01/20/25 11:16 Pulse Oximetry 96 01/20/25 11:16 Oxygen Delivery Method Room Air 01/20/25 11:16 Course Orders Ordered: Discontinued Medications Diphenhydramine HCl (Diphenhydramine 50 Mg/Ml Vial) 25 mg IV NOW ONE Stop: 01/20/25 13:42 Last Admin: 01/20/25 13:53 Dose: 25 mg Documented By: DEREK Sodium Chloride (Normal Saline 0.9%) 1,000 mls @ 1,000 mls/hr IV BOLUS ONE Stop: 01/20/25 13:20 Last Infusion: 01/20/25 14:04 Dose: Infused Documented By: Admin: 01/20/25 12:45 Dose: 1,000 mls/hr Documented By: CADY Ketorolac Tromethamine (Ketorolac 30 Mg/Ml Vial) 30 mg IV NOW ONE Stop: 01/20/25 12:16 Last Admin: 01/20/25 12:46 Dose: 15 mg Documented By: CADY Ketorolac Tromethamine (Ketorolac 30 Mg/Ml Vial) 15 mg IV NOW ONE Stop: 01/20/25 12:46 Last Admin: 01/20/25 12:58 Dose: Not Given Documented By: MAX Ondansetron HCl (Ondansetron 4 Mg/2 Ml Inj) 4 mg IV NOW ONE Stop: 01/20/25 13:42 Last Admin: 01/20/25 13:53 Dose: 4 mg Documented By: DEREK Vital Signs Vital signs: Vital Signs - 8 hr 01/20/25 11:16 01/20/25 13:13 Temperature 98.0 F Pulse Rate 82 74 Respiratory Rate 16 14 Blood Pressure 146/85 H 145/94 H Pulse Oximetry 96 97 Oxygen Delivery Method Room Air Room Air MDM - Headache MDM Narrative Medical decision making narrative: ED course: This is a 39-year-old male presents to the emergency department due to migraine. He has a history of migraines and took his Triptan without significant relief and came here. Was not presenting with any slurred speech, weakness, facial drooping, or any other concerning signs and symptoms for an intracranial bleed. Reassuring neuro exam here as well. Patient was given IV Toradol, Zofran, and Benadryl which significantly helped to improve his symptoms. Recommended follow up with PCP for long-term migraine management. CC: Migraine Complicating co-morbidities: History of migraines Data collected from: Previous notes Medical records reviewed: Patient was last seen in this emergency department 2 months ago due to dizziness and vertigo symptoms. History of opiate use disorder. Had a reassuring neuro exam. Lab work and CT head and chest x-ray and EKG were ordered which showed no concerning findings. Patient was given Zofran, normal saline, meclizine. Symptoms have improved after medication.Patient was seen at the walk-in clinic a month ago. The Toradol was given. Differential considered, but not limited to: Migraine, intracranial bleed Exam documented above, pertinent findings include: Reassuring neuro exam Lab Test results independently reviewed as above. Pertinent findings: None obtained Imaging studies independently reviewed: None obtained Scores Used: None MIPS Elements: None Consultations: None Treatments: Toradol, Benadryl, Zofran Re-evaluations: Feeling better after medications Discussion: Discussed plan with the patient was comfortable with the plan Diagnosis: Migraines Disposition: see below, along with detailed discharge instructions that have been reviewed with patient as well as indications for ED re-evaluation and additional outpatient follow up Discharge Plan Departure Patient Disposition: Home Clinical Impression: Migraine Qualifiers: Migraine type: other Status migrainosus presence: with status migrainosus Intractability: intractable Qualified Code(s): G43.811 - Other migraine, intractable, with status migrainosus Instructions: DI for Migraine Activity Restrictions/Additional Instructions: Thank you for coming to the [facility] Emergency Department today. I am glad your migraines are doing better after the medications. Please follow up with her PCP for long-term management of these. Please return to the emergency department if you develop any slurred speech, facial drooping, weakness, or any other concerning signs or symptoms. I hope you feel better soon. Please follow up with your primary care provider within a week if your symptoms continue. If you do not have a primary care provider please contact the [facility] Resource line at [phone]. They will ask some questions about your medical history and help you get set up with a provider in the community. Prescriptions: No Action buprenorphine-naloxone 8-2 mg tablet, sublingual 1 tab sublingual BID rizatriptan PO naproxen 500 mg tablet 500 mg PO BID PRN (Reason: pain) Qty: 20 0RF ondansetron 4 mg tablet,disintegrating 4 mg PO Q8H PRN (Reason: nausea and vomiting) Qty: 20 0RF Rx Instructions: as needed; use sparingly trazodone 50 mg tablet 50 - 100 mg PO ONCE PM PRN (Reason: insomnia) meclizine 50 mg tablet 50 mg PO DAILY PRN (Reason: dizziness or vertigo) Qty: 20 0RF Referrals: Jese Tidwell MD [Primary Care Provider, Internal Medicine] Stand Alone Forms: Patient Portal/API
[2025-01-20] MEDS: SODIUM CHLORIDE 0.9% 1,000 ML 1000 ML IV (12:45)
[2025-01-20] MEDS: KETOROLAC 30 MG/ML VIAL IV (12:46)
[2025-01-20 13:13] VITALS: BP 145/94; PULSE 74; RESP 14; O2SAT 97
[2025-01-20] MEDS: diphenhydrAMINE 50 MG/ML VIAL 25 MG IV (13:53)
[2025-01-20] MEDS: ONDANSETRON 4 MG/2 ML INJ IV (13:53)
[2025-01-20 14:44] VITALS: BP 147/92; PULSE 70; RESP 14; O2SAT 98
== END 2025-01-20 14:45 | disposition home or self-care (01) ==
PROVIDERS: Emergency Provider Physician Assistant Medical; PCP Internal Medicine
DX: G43.811 Other migraine, intractable, with status migrainosus (principal)
CPT/HCPCS: 96374; 96375; 99283; 99284; J1200; J1885; J2405; J7030

== ENCOUNTER → 2025-02-23 11:13 | Outpatient (CLI) | payer OTHER, SELFPAY ==
[2025-02-23 12:17] LABS: Hematocrit 39.6 % (41-53); Hemoglobin 13.3 g/dL (13.5-17.5); Mean Corpuscular HGB Conc 33.6 % (30-36); Mean Corpuscular Hemoglobin 30.5 PG (26-34); Mean Corpuscular Volume 90.6 fL (80-100); Platelet Count 225 X10^3/uL (150-400)
[2025-02-23 12:43] LABS: Alanine Aminotransferase 24 IU/L (<50); Albumin 4.2 g/dL (3.5-5.0); Albumin Globulin Ratio 1.4 (1.0-2.8); Alkaline Phosphatase 69 U/L (38-126); Blood Urea Nitrogen 17 mg/dL (9-20); Calcium 8.8 mg/dL (8.4-10.2); Carbon Dioxide 27 mmol/L (22-32); Chloride 105 mmol/L (98-107); Cholesterol 167 mg/dL (140-199); Estimated Glomerular Filt Rate > 60 mL/min (>60); Globulin 2.9 g/dL (1.7-4.1); Glucose 103 mg/dL (70-99); HDL Cholesterol 46 mg/dL (40-60); HEMOLYSIS < 15 (0-50); Potassium 4.5 mmol/L (3.4-5.1); Sodium 140 mmol/L (137-145); Total Protein 7.1 g/dL (6.3-8.2); Triglycerides 60 mg/dL (35-150)
[2025-02-23 12:48] LABS: Hemoglobin A1C% w Est Avg Glu 5.6 % (4.0-6.0)
[2025-02-23 13:14] LABS: TSH w/ Reflex to FT4 1.74 uIU/mL (0.47-4.68)
== END ==
PROVIDERS: PCP Family Medicine; Referring Provider Family Medicine; Visit Provider Family Medicine
DX: Z00.00 Encounter for general adult medical examination without abnormal findings (principal)
CPT/HCPCS: 36415; 80053; 80061; 83036; 84443; 85027